=== PATIENT | male | born 1960 | race American Indian/Alaskan Native ===

== ENCOUNTER 2016-11-05 07:38 | Emergency (ER) | payer MEDICARE ==
[2016-11-05 08:30] LABS: Anion Gap 21 mmol/L; BUN/Creatinine Ratio 19.16; Blood Urea Nitrogen 23 mg/dL (9-20); Calcium 8.7 mg/dL (8.4-10.2); Carbon Dioxide 23 mmol/L (22-30); Chloride 87.2 mmol/L (98-107); Glucose 123 mg/dL (75-100); Potassium 3.5 mmol/L (3.6-5.0); Sodium 128 mmol/L (137-145)
[2016-11-05 08:49] LABS: Bacteria,Urine 1+ /HPF (Negative); Bilirubin,Urine NEG (Negative); Blood,Urine NEG (Negative); Ketones,Urine NEG (Negative); Leukocyte Esterase,Urine NEG (Negative); Mucus,Urine FEW /HPF; Nitrite,Urine NEG (Negative); Protein,Urine <15 mg/dL mg/dL (Negative)
[2016-11-05] MEDS ORDERED: NACL 0.9% 1000 ML 1,000 ML ONE (12:24)
[2016-11-05] MEDS: NACL 0.9% 1000 ML 1,000 ML IV ONE (12:52)
--- NOTE | 2016-11-05 15:06 | Emergency Department Report ---
HPI - General Chief Complaint: Extremity Injury, Upper Time Seen by Provider: 11/05/16 12:05 - HPI HPI: The patient is a 56-year-old male who presents for evaluation of diffuse myalgias to the bilateral ribs, arms, legs, feet, and hands. He states that his pain has been present for the past one day, and has been 10/10 in severity, cramping in quality, exacerbated with movement of the limbs or thoracic cage, and associated with on and off jitteriness in the bilateral hands. The patient denies fever, headache, trauma to the head, neck pain or stiffness, chest pain, dyspnea, abdominal pain, diarrhea, dysuria, flank pain, arthralgias or rash. ED Past Medical Hx - Past Medical History Hx Hypertension: Yes Hx Congestive Heart Failure: No Hx Diabetes: No Hx Asthma: No Hx COPD: No Hx HIV: No - Surgical History Past Surgical History?: No Hx Pacemaker: No Hx Internal Defibrillator: No - Social History Smoking Status: Never Smoker Substance Use Type: Alcohol - Medications Home Medications: Home Medications Medication Instructions Recorded Confirmed Last Taken Type Diazepam Tab [Valium] 5 mg PO TID PRN #10 tablet 11/05/16 Unknown Rx Ibuprofen [Motrin] 800 mg PO Q8HR PRN #15 tablet 11/05/16 Unknown Rx Lisinopril [Zestril] 20 mg PO QDAY 11/05/16 11/05/16 11/05/16 06:00 History Triamter/Hctz 75-50 mg [Maxzide 1 tab PO QDAY 11/05/16 11/05/16 11/04/16 09:00 History 75-50 mg] ED Review of Systems ROS: Stated complaint: PAIN IN HANDS/CRAMPING Other details as noted in HPI Constitutional: denies: fever ENT: denies: throat or neck pain Respiratory: denies: cough, shortness of breath Cardiovascular: denies: chest pain Endocrine: denies unexplained weight loss or gain Gastrointestinal: denies: abdominal pain, nausea Genitourinary: denies: dysuria Musculoskeletal: reports diffuse myalgias denies: leg swelling Skin: denies: rash Neurological: denies: headache Hematological/Lymphatic: denies: easy bleeding or easy bruising Psych: denies sadness or hopelessness Physical Exam - Physical Exam Vital Signs: Vital Signs 11/05/16 11/05/16 07:56 12:40 Temperature 98.3 F Pulse Rate 77 Respiratory 18 18 Rate Blood Pressure 129/80 O2 Sat by Pulse 99 100 Oximetry Physical Exam: General: well-nourished, well-developed, no acute distress Head: Normocephalic, atraumatic Eyes: normal sclera, EOMI, PERRL ENT: Mucous membranes are pale and dry Neck: No neck stiffness, no cervical adenopathy Respiratory: Breath sounds equal bilaterally, no wheezing, rales, or rhonchi Cardio: S1 and S2 present, no murmurs, rubs, gallops, capillary refill is delayed Abdomen: Normoactive bowel sounds, soft abdomen, no tenderness Musc: Diffuse generalized tenderness to palpation to the bilateral lower intercostals, and proximal and distal bilateral arms and legs, No edema of arms or legs Skin: No rash Neuro: Alert oriented 3, no facial drooping, normal speech, no sensation motor deficit in the arms or legs, no resting or intention tremor, reflexes 2+ and symmetric on DTR testing, no coordination deficit with finger to nose testing bilaterally, no deficit with ambulation Psych: Normal affect ED Course Vital Signs 11/05/16 11/05/16 07:56 12:40 Temperature 98.3 F Pulse Rate 77 Respiratory 18 18 Rate Blood Pressure 129/80 O2 Sat by Pulse 99 100 Oximetry ED Medical Decision Making - Lab Data Result diagrams: 11/05/16 15:17 11/05/16 08:03 - Medical Decision Making The patient was seen and examined by myself. The patient is placed on a awake overnight monitor and continuous pulse ox. On initial evaluation, the patient was found to be in no distress. Evaluation orders are placed. IV access is established and the patient is given 1 L normal saline fluid bolus for treatment of dehydration, and an IV Toradol and Valium for his pain. Lab results revealed mild hypokalemia, potassium 3.5, and otherwise were non- concerning including nml WBC, hemoglobin, hematocrit, renal function, and CK level. The patient is given a tablet of [place] for treatment of hyperkalemia. The patient was reevaluated and reported that their symptoms were markedly improved. The patient is stable for discharge with outpatient follow-up. The patient is given follow-up and return instructions. The patient expressed understanding and agreed with the plan. The patient is discharged in stable condition. Critical care attestation.: If time is entered above; I have spent that time in minutes in the direct care of this critically ill patient, excluding procedure time. ED Disposition Clinical Impression: Intercostal myalgia, Muscle cramps, Hypokalemia, Dehydration Disposition: DISCHARGED TO HOME OR SELFCARE Is pt being admited?: No Does the pt Need Aspirin: No Condition: Stable Instructions: Hypokalemia (ED), Musculoskeletal Pain (ED), Muscle Cramp (ED) Prescriptions: Diazepam Tab [Valium] 5 mg PO TID PRN #10 tablet PRN Reason: Anxiety Ibuprofen [Motrin] 800 mg PO Q8HR PRN #15 tablet PRN Reason: Pain Referrals: PRIMARY CARE,MD [Primary Care Provider] - 3-5 Days Time of Disposition: 15:06
[2016-11-05 15:29] LABS: Basophils % (Auto) 1.1 % (0.0-1.8); Hematocrit 36.3 % (35.5-45.6); Hemoglobin 12.1 gm/dl (11.8-15.2); Mean Corpuscular HGB Conc 33 % (32-34); Mean Corpuscular Hemoglobin 32 pg (28-32); Mean Corpuscular Volume 96 fl (84-94); Platelet Count 138 K/mm3 (140-440); Red Blood Count 3.77 M/mm3 (3.65-5.03); Red Cell Distribution Width 17.7 % (13.2-15.2); White Blood Count 6.7 K/mm3 (4.5-11.0)
[2016-11-05] MEDS: NACL 0.9% 500 ML 500 ML IV ONE (15:31)
[2016-11-05] MEDS: K-DUR PO ONE (15:40)
[2016-11-05] MEDS: TORADOL IV ONE (15:45)
[2016-11-05] MEDS: VALIUM IV ONE (15:46)
[2016-11-05 15:52] LABS: Magnesium 1.8 mg/dL (1.7-2.3)
[2016-11-05 16:30] VITALS: BP 95/63
== END 2016-11-05 16:25 | disposition home or self-care (01) ==
LOC: ED 07:38
DX: M79.1 Myalgia (principal); E87.6 Hypokalemia; E86.0 Dehydration; I10 Essential (primary) hypertension
CPT/HCPCS: 36415; 80048; 80320; 81001; 82550; 83735; 85025; 96361; 96374; 96375; 99284; G0480; J1885; J3360; J7030

== ENCOUNTER 2018-07-17 00:56 | Emergency (ER) | payer MEDICARE, OTHER ==
[2018-07-17 01:24] VITALS: BP 116/72
[2018-07-17] MEDS ORDERED: TORADOL IM ONE (02:18)
--- NOTE | 2018-07-17 02:36 | Emergency Department Report ---
ED Back Pain/Injury HPI - General Chief Complaint: Back Pain/Injury Stated Complaint: RASH Time Seen by Provider: 07/17/18 01:45 Source: patient Limitations: No Limitations - History of Present Illness Initial Comments: Patient is a 58-year-old male with hx of HTN, who presents for low back pain radiating to her right lateral thigh today denies fall injury or trauma pain is described as for routine aching burning pain is exacerbated by bending twisting prolonged sitting or standing there is no numbness no tingling or paralysis no degrees or loss of bowel or bladder function. Patient has had chronic back pain in the past in same location and intensity, described as 10/23 backache MD Complaint: back injury -: Sudden Similar Symptoms Previously: Yes Place: home Radiation: right leg Severity: moderate Severity scale (0 -10): 4 Quality: sharp, aching Consistency: intermittent Improves With: other (rest ) Worsens With: movement (bending twisting prolonged sitting or standing ) Context: turning/twisting, bending Associated Symptoms: denies: confusion, weakness, chest pain, numbness, difficulty walking, cough, difficulty urinating, diaphoresis, incontinence, fever/chills, constipation, headaches, abdominal pain, loss of appetite, malaise, nausea/vomiting, rash, seizure, shortness of breath, syncope - Related Data Home Medications Medication Instructions Recorded Confirmed Last Taken Lisinopril [Zestril] 20 mg PO QDAY 11/05/16 11/05/16 11/05/16 06:00 Triamter/Hctz 75-50 mg (Nf) 1 tab PO QDAY 11/05/16 11/05/16 11/04/16 09:00 [Maxzide 75-50 mg] Previous Rx's Medication Instructions Recorded Last Taken Type diazePAM TAB [Valium] 5 mg PO TID PRN #10 tablet 11/05/16 Unknown Rx Cyclobenzaprine [Flexeril] 10 mg PO BID PRN #20 tablet 07/17/18 Unknown Rx Menthol/Camphor [[place] 1 applicatio TP QID PRN #1 tube 07/17/18 Unknown Rx Ointment] Naproxen 500 mg PO BID PRN #30 tablet 07/17/18 Unknown Rx Allergies Allergy/AdvReac Type Severity Reaction Status Date / Time No Known Allergies Allergy Verified 11/05/16 07:55 ED Review of Systems ROS: Stated complaint: RASH Other details as noted in HPI Constitutional: denies: chills, fever Eyes: denies: eye pain, eye discharge, vision change ENT: denies: ear pain, throat pain Respiratory: denies: cough, shortness of breath, wheezing Cardiovascular: denies: chest pain, palpitations Endocrine: no symptoms reported Gastrointestinal: denies: abdominal pain, nausea, vomiting, diarrhea, constipation Genitourinary: denies: urgency, dysuria, frequency, hematuria, discharge Musculoskeletal: back pain. denies: joint swelling, arthralgia, myalgia Skin: denies: rash, lesions Neurological: denies: headache, weakness, numbness, paresthesias, confusion, abnormal gait, vertigo Psychiatric: denies: anxiety, depression Hematological/Lymphatic: as per HPI ED Past Medical Hx - Past Medical History Previous Medical History?: Yes Hx Hypertension: Yes Hx Congestive Heart Failure: No Hx Diabetes: No Hx Asthma: No Hx COPD: No Hx HIV: No Additional medical history: concussion - Surgical History Past Surgical History?: No Hx Pacemaker: No Hx Internal Defibrillator: No - Social History Smoking Status: Light Tobacco Smoker Substance Use Type: Alcohol - Medications Home Medications: Home Medications Medication Instructions Recorded Confirmed Last Taken Type Lisinopril [Zestril] 20 mg PO QDAY 11/05/16 11/05/16 11/05/16 06:00 History Triamter/Hctz 75-50 mg (Nf) 1 tab PO QDAY 11/05/16 11/05/16 11/04/16 09:00 History [Maxzide 75-50 mg] diazePAM TAB [Valium] 5 mg PO TID PRN #10 tablet 11/05/16 Unknown Rx Cyclobenzaprine [Flexeril] 10 mg PO BID PRN #20 tablet 07/17/18 Unknown Rx Menthol/Camphor [[place] 1 applicatio TP QID PRN #1 tube 07/17/18 Unknown Rx Ointment] Naproxen 500 mg PO BID PRN #30 tablet 07/17/18 Unknown Rx ED Physical Exam - General Limitations: No Limitations General appearance: alert, in no apparent distress - Head Head exam: Present: atraumatic, normocephalic - Eye Eye exam: Present: normal appearance, PERRL, EOMI Pupils: Present: normal accommodation - ENT ENT exam: Present: mucous membranes moist, TM's normal bilaterally - Neck Neck exam: Present: normal inspection - Respiratory Respiratory exam: Present: normal lung sounds bilaterally, chest wall tenderness. Absent: respiratory distress, wheezes, rhonchi, stridor - Cardiovascular Cardiovascular Exam: Present: regular rate, normal rhythm, bradycardia, tachycardia. Absent: systolic murmur, diastolic murmur, rubs, gallop - GI/Abdominal GI/Abdominal exam: Present: soft, normal bowel sounds. Absent: tenderness, guarding, rebound, rigid, organomegaly, mass, bruit, pulsatile mass, hernia - Rectal Rectal exam: Present: deferred - exam: Present: other (exam deferred ) - Extremities Exam Extremities exam: Present: normal inspection, normal capillary refill. Absent: tenderness, pedal edema, joint swelling, calf tenderness - Back Exam Back exam: Present: full ROM, tenderness, muscle spasm, paraspinal tenderness. Absent: CVA tenderness (R), CVA tenderness (L), vertebral tenderness, rash noted - Neurological Exam Neurological exam: Present: alert, oriented X3, CN II-XII intact, normal gait, reflexes normal - Psychiatric Psychiatric exam: Present: normal affect, normal mood - Skin Skin exam: Present: warm, dry, intact, normal color. Absent: rash ED Course Vital Signs 07/17/18 01:15 Temperature 97.5 F L Pulse Rate 94 H Respiratory 18 Rate Blood Pressure 116/72 O2 Sat by Pulse 96 Oximetry ED Medical Decision Making - Medical Decision Making This is a low back strain with right sided sciatica pain is improved with pain medds given ED, there is no dysuria frequency or urgency no hematuria no fever or chills, and no n/v no posterior vertebral point tenderness. plan: NSAIDS , muscle relaxant, analgesic balm, pt will follow up with pcp in 2-3 days or return to ed symptoms worsen. Critical care attestation.: If time is entered above; I have spent that time in minutes in the direct care of this critically ill patient, excluding procedure time. ED Disposition Clinical Impression: Lumbar strain Qualifiers: Encounter type: initial encounter Qualified Code(s): S39.012A - Strain of muscle, fascia and tendon of lower back, initial encounter Disposition: TO HOME OR SELFCARE Is pt being admited?: No Does the pt Need Aspirin: No Condition: Stable Instructions: Muscle Strain (ED), Low Back Strain (ED), Core Strengthening Exercises (GEN) Prescriptions: Cyclobenzaprine [Flexeril] 10 mg PO BID PRN #20 tablet PRN Reason: Muscle Spasm Menthol/Camphor [[place] Ointment] 1 applicatio TP QID PRN #1 tube PRN Reason: pain Naproxen 500 mg PO BID PRN #30 tablet PRN Reason: pain Referrals: PRIMARY CARE, [Primary Care Provider] - 3-5 Days Forms: Work/School Release Form(ED) Time of Disposition: 02:56
== END 2018-07-17 03:08 | disposition home or self-care (01) ==
LOC: EDBD → ED 00:56
DX: S39.012A Strain of muscle, fascia and tendon of lower back, initial encounter (principal); X58.XXXA Exposure to other specified factors, initial encounter; Y93.89 Activity, other specified; Y92.89 Other specified places as the place of occurrence of the external cause; Y99.8 Other external cause status; I10 Essential (primary) hypertension; F17.200 Nicotine dependence, unspecified, uncomplicated
CPT/HCPCS: 96372; 99282; J1885

== ENCOUNTER 2018-07-23 07:49 | Inpatient (IN) | payer MEDICARE ==
--- NOTE | 2018-07-23 08:37 | Emergency Department Report ---
ED General Adult HPI - General Chief complaint: Extremity Problem,Nontraumatic Stated complaint: SWELLING LEG AND FOOT/PAIN Source: patient Mode of arrival: Ambulatory Limitations: No Limitations - History of Present Illness Initial comments: Patient presents to emergency department with chief complaint of bilateral leg swelling for the last week. Patient denies any pain in his legs. Patient also denies shortness of breath, chest pain, headache. -: Gradual Severity scale (0 -10): 0 Consistency: constant Improves with: none Worsens with: none Associated Symptoms: denies other symptoms Treatments Prior to Arrival: none - Related Data Home Medications Medication Instructions Recorded Confirmed Last Taken Lisinopril [Zestril] 20 mg PO QDAY 11/05/16 11/05/16 11/05/16 06:00 Triamter/Hctz 75-50 mg (Nf) 1 tab PO QDAY 11/05/16 11/05/16 11/04/16 09:00 [Maxzide 75-50 mg] Previous Rx's Medication Instructions Recorded Last Taken Type diazePAM TAB [Valium] 5 mg PO TID PRN #10 tablet 11/05/16 Unknown Rx Cyclobenzaprine [Flexeril] 10 mg PO BID PRN #20 tablet 07/17/18 Unknown Rx Menthol/Camphor [[place] 1 applicatio TP QID PRN #1 tube 07/17/18 Unknown Rx Ointment] Naproxen 500 mg PO BID PRN #30 tablet 07/17/18 Unknown Rx Allergies Allergy/AdvReac Type Severity Reaction Status Date / Time No Known Allergies Allergy Verified 11/05/16 07:55 ED Review of Systems ROS: Stated complaint: SWELLING LEG AND FOOT/PAIN Other details as noted in HPI Comment: All other systems reviewed and negative Constitutional: denies: chills, fever Eyes: denies: eye pain, eye discharge, vision change ENT: denies: ear pain, throat pain Respiratory: denies: cough, shortness of breath, wheezing Cardiovascular: denies: chest pain, palpitations Endocrine: no symptoms reported Gastrointestinal: denies: abdominal pain, nausea, diarrhea Genitourinary: denies: urgency, dysuria Musculoskeletal: denies: back pain, joint swelling, arthralgia Skin: denies: rash, lesions Neurological: denies: headache, weakness, paresthesias Psychiatric: denies: anxiety, depression Hematological/Lymphatic: denies: easy bleeding, easy bruising ED Past Medical Hx - Past Medical History Hx Hypertension: Yes Hx Congestive Heart Failure: No Hx Diabetes: No Hx Asthma: No Hx COPD: No Hx HIV: No Additional medical history: concussion - Surgical History Past Surgical History?: No Hx Pacemaker: No Hx Internal Defibrillator: No - Social History Smoking Status: Never Smoker - Medications Home Medications: Home Medications Medication Instructions Recorded Confirmed Last Taken Type Lisinopril [Zestril] 20 mg PO QDAY 11/05/16 11/05/16 11/05/16 06:00 History Triamter/Hctz 75-50 mg (Nf) 1 tab PO QDAY 11/05/16 11/05/16 11/04/16 09:00 History [Maxzide 75-50 mg] diazePAM TAB [Valium] 5 mg PO TID PRN #10 tablet 11/05/16 Unknown Rx Cyclobenzaprine [Flexeril] 10 mg PO BID PRN #20 tablet 07/17/18 Unknown Rx Menthol/Camphor [[place] 1 applicatio TP QID PRN #1 tube 07/17/18 Unknown Rx Ointment] Naproxen 500 mg PO BID PRN #30 tablet 07/17/18 Unknown Rx ED Physical Exam - General Limitations: No Limitations General appearance: alert - Head Head exam: Present: atraumatic, normocephalic - Eye Eye exam: Present: PERRL, EOMI, other (jaundice of sclera) - ENT ENT exam: Present: mucous membranes moist - Neck Neck exam: Present: normal inspection - Respiratory Respiratory exam: Present: normal lung sounds bilaterally. Absent: respiratory distress, wheezes, rales, rhonchi - Cardiovascular Cardiovascular Exam: Present: regular rate, normal rhythm. Absent: systolic m urmur, diastolic murmur, rubs, gallop - GI/Abdominal GI/Abdominal exam: Present: soft, distended, normal bowel sounds. Absent: tenderness - Rectal Rectal exam: Present: deferred - Extremities Exam Extremities exam: Present: other (bilateral pitting edema) - Back Exam Back exam: Present: normal inspection - Neurological Exam Neurological exam: Present: alert, oriented X3, CN II-XII intact. Absent: motor sensory deficit - Psychiatric Psychiatric exam: Present: normal affect, normal mood - Skin Skin exam: Present: warm, dry, intact, normal color. Absent: rash ED Course Vital Signs 07/23/18 07:57 Temperature 98.5 F Pulse Rate 85 Respiratory 20 Rate Blood Pressure 132/81 O2 Sat by Pulse 99 Oximetry ED Medical Decision Making - Lab Data Result diagrams: 07/23/18 08:45 07/23/18 08:45 Lab Results 07/23/18 07/23/18 07/23/18 Range/Units 08:45 08:45 Unknown WBC 7.7 (4.5-11.0) K/mm3 RBC 3.08 L (3.65-5.03) M/mm3 Hgb 11.0 L (11.8-15.2) gm/dl Hct 30.6 L (35.5-45.6) % MCV 99 H (84-94) fl MCH 36 H (28-32) pg MCHC 36 H (32-34) % RDW 16.7 H (13.2-15.2) % Plt Count 103 L (140-440) K/mm3 Sodium 130 L (137-145) mmol/L Potassium 2.8 L* (3.6-5.0) mmol/L Chloride 92.1 L (98-107) mmol/L Carbon Dioxide 26 (22-30) mmol/L Anion Gap 15 mmol/L BUN 9 (9-20) mg/dL Creatinine < 0.2 L (0.8-1.5) mg/dL Estimated GFR > 60 ml/min BUN/Creatinine Ratio 45 % Glucose 90 (75-100) mg/dL Calcium 7.3 L (8.4-10.2) mg/dL Total Bilirubin 17.50 H (0.1-1.2) mg/dL AST 141 H (5-40) units/L ALT 45 (7-56) units/L Alkaline Phosphatase 197 H (35-129) units/L NT-Pro-B Natriuret Pep 69.91 (0-900) pg/mL Total Protein 6.6 (6.3-8.2) g/dL Albumin 2.4 L (3.9-5) g/dL Albumin/Globulin Ratio 0.6 % Urine Color Yellow (Yellow) Urine Turbidity Clear (Clear) Urine pH 5.0 (5.0-7.0) Ur Specific [place] 1.010 (1.003-1.030) Urine Protein <15 mg/dl (Negative) mg/dL Urine Glucose (UA) Neg (Negative) mg/dL Urine Ketones Neg (Negative) mg/dL Urine Blood Neg (Negative) Urine Nitrite Neg (Negative) Urine Bilirubin Mod (Negative) Urine Ictotest Positive (Negative) Urine Urobilinogen 4.0 (<2.0) mg/dL Ur Leukocyte Esterase Neg (Negative) Urine WBC (Auto) 4.0 (0.0-6.0) /HPF Urine RBC (Auto) < 1.0 (0.0-6.0) /HPF U Epithel Cells (Auto) 1.0 (0-13.0) /HPF Urine Bacteria (Auto) 1+ (Negative) /HPF Urine Mucus Few /HPF Critical care attestation.: If time is entered above; I have spent that time in minutes in the direct care of this critically ill patient, excluding procedure time. ED Disposition Clinical Impression: Total bilirubin, elevated, Peripheral edema Disposition: 09 OP ADMIT IP TO THIS HOSP Is pt being admited?: Yes Does the pt Need Aspirin: No Condition: Fair Referrals: PRIMARY CARE, [Primary Care Provider] - 3-5 Days
--- NOTE | 2018-07-23 08:54 | XRay Report ---
ROUTINE CHEST, TWO VIEWS: HISTORY: Shortness of breath. Compared to 08/31/14. The trachea, heart, mediastinal contour, lung negrete and bony thorax are unremarkable. IMPRESSION: Unremarkable chest x-ray.
[2018-07-23 09:12] LABS: Hematocrit 30.6 % (35.5-45.6); Mean Corpuscular HGB Conc 36 % (32-34); Mean Corpuscular Volume 99 fl (84-94); Platelet Count 103 K/mm3 (140-440); Red Blood Count 3.08 M/mm3 (3.65-5.03); Red Cell Distribution Width 16.7 % (13.2-15.2)
[2018-07-23 09:27] LABS: Alanine Aminotransferase 45 units/L (7-56); Albumin 2.4 g/dL (3.9-5); BUN/Creatinine Ratio 45; Blood Urea Nitrogen 9 mg/dL (9-20); Calcium 7.3 mg/dL (8.4-10.2); Hemolysis Index 0
[2018-07-23 11:23] LABS: Bacteria,Urine 1+ /HPF (Negative); Bilirubin,Urine MOD (Negative); Blood,Urine NEG (Negative); Mucus,Urine FEW /HPF; Protein,Urine <15 mg/dL mg/dL (Negative)
[2018-07-23 11:26] LABS: Color,Urine Yellow (Yellow)
[2018-07-23 11:27] LABS: RBC,Urine < 1.0 /HPF (0.0-6.0)
[2018-07-23 11:29] LABS: Ictotest,Urine Positive (Negative)
--- NOTE | 2018-07-23 11:32 | Cat Scan Report ---
CT ABDOMEN PELVIS WITHOUT CONTRAST: HISTORY: Ascites. COMPARISON: 08/31/14. TECHNIQUE: Helical CT in 1.25mm intervals without IV contrast. Sagittal and coronal reconstructions. FINDINGS: Lung bases: Normal. Liver: Mild diffuse fatty infiltration is suspected throughout the liver. No obvious liver mass. Mild hypertrophy of the left hepatic lobe and very subtle surface nodularity of the liver are identified which could represent early cirrhotic changes. Biliary system: Normal. Pancreas: Normal. Spleen: Normal. 11.9 cm in length. Kidneys/ureters/bladder: Normal. Adrenal glands: Normal. Aorta: Normal. Intestines: Mild diverticulosis of the descending colon is identified. No evidence for focal inflammation or bowel obstruction. Appendix: Not confidently identified, correlate with surgical history. Pelvic viscera: Normal. Ascites: None. Adenopathy: None. Musculoskeletal: Intact. Mild lumbar spondylosis is noted. IMPRESSION: No ascites. No acute abdominal process is identified. Fatty infiltration of the liver. Question early cirrhotic changes. Mild diverticulosis of the distal colon.
[2018-07-23] MEDS ORDERED: KCL 20MEQ/100ML 20 MEQ/100 ML BAG IV ONE (13:10)
--- NOTE | 2018-07-23 13:42 | History and Physical Report ---
History of Present Illness Chief complaint: I need to get checked out History of present illness: 58 YO Male with ETOH Dependence, HTN presents to ED for evaluation. Pt states that he has experienced shortness of breath, generalized edema, and chest discomfort over the past 1 week, with worsening symptoms over the same time frame. Pt denies fever, chills, CP, Palpitations, NVD, Trauma, skin rash or recent ill contacts. Pt acknowledges darkening skin over the past week. Pt transported to [facility] for further care and evaluation. Pt seen and evaluated in ED and found to have Obstructive Jaundice, and suspected Cirrhosis. Pt admitted to medical floor. GI consulted in ED. Past History Past Medical History: hypertension Past Surgical History: No surgical history Social history: smoking Family history: no significant family history (reviewed) Medications and Allergies Allergies Allergy/AdvReac Type Severity Reaction Status Date / Time No Known Allergies Allergy Verified 11/05/16 07:55 Home Medications Medication Instructions Recorded Confirmed Last Taken Type Cyclobenzaprine [Flexeril] 10 mg PO BID PRN #20 tablet 07/17/18 07/23/18 07/23/18 Rx Naproxen 500 mg PO BID PRN #30 tablet 07/17/18 07/23/18 07/23/18 Rx Active Meds: Active Medications Potassium Chloride (Kcl 10meq/100ml) 10 meq in 100 mls @ 100 mls/hr IV Q1H NITA Stop: 07/23/18 15:59 Review of Systems Constitutional: no weight loss, no weight gain, no fever, no chills Ears, nose, mouth and throat: no ear pain, no ear discharge, no tinnitis, no decreased hearing, no nasal congestion, no nasal discharge Cardiovascular: shortness of breath, no chest pain, no orthopnea, no palpitations, no dyspnea on exertion Respiratory: no cough, no cough with sputum, no excessive sputum, no hemoptysis Gastrointestinal: no abdominal pain, no nausea, no vomiting, no diarrhea, no con stipation Genitourinary Male: no hematuria, no flank pain, no discharge, no urinary frequency, no urinary hesitancy Rectal: no pain, no incontinence, no bleeding Musculoskeletal: no neck stiffness, no neck pain, no shooting arm pain, no arm numbness/tingling, no low back pain Integumentary: no rash, no pruritis, no redness, no sores, no wounds Neurological: no head injury, no transient paralysis, no paralysis, no weakness, no parathesias, no numbness Psychiatric: no anxiety, no memory loss, no change in sleep habits, no sleep disturbances, no insomnia, no hypersomnia Endocrine: no cold intolerance, no heat intolerance, no polyphagia, no excessive thirst, no polydipsia, no polyuria Hematologic/Lymphatic: no easy bruising, no easy bleeding, no lymphadenopathy, no lymphedema Allergic/Immunologic: no urticaria, no allergic rhinitis, no wheezing, no persistent infections, no anaphylaxis, no angioedema Exam - Constitutional Vitals: Temp Pulse Resp BP Pulse Ox 98.5 F 85 20 132/81 99 07/23/18 07:57 07/23/18 07:57 07/23/18 07:57 07/23/18 07:57 07/23/18 07:57 General appearance: Present: mild distress - EENT Eyes: Present: PERRL ENT: hearing intact, clear oral mucosa - Neck Neck: Present: supple, normal ROM - Respiratory Respiratory effort: normal Respiratory: bilateral: CTA - Cardiovascular Heart Sounds: Present: S1 & S2. Absent: rub, click - Extremities Extremities: pulses symmetrical, No edema Peripheral Pulses: within normal limits - Abdominal General gastrointestinal: Present: soft, non-tender, non-distended, normal bowel sounds Male genitourinary: Present: normal - Integumentary Integumentary: Present: clear, warm, dry - Musculoskeletal Musculoskeletal: gait normal, strength equal bilaterally - Psychiatric Psychiatric: appropriate mood/affect, intact judgment & insight - Neurologic Neurologic: CNII-XII intact, moves all extremities Results - Labs CBC & Chem 7: 07/23/18 08:45 07/23/18 08:45 Labs: Abnormal lab results 07/23/18 07/23/18 Range/Units 08:45 08:45 RBC 3.08 L (3.65-5.03) M/mm3 Hgb 11.0 L (11.8-15.2) gm/dl Hct 30.6 L (35.5-45.6) % MCV 99 H (84-94) fl MCH 36 H (28-32) pg MCHC 36 H (32-34) % RDW 16.7 H (13.2-15.2) % Plt Count 103 L (140-440) K/mm3 Sodium 130 L (137-145) mmol/L Potassium 2.8 L* (3.6-5.0) mmol/L Chloride 92.1 L (98-107) mmol/L Creatinine < 0.2 L (0.8-1.5) mg/dL Calcium 7.3 L (8.4-10.2) mg/dL Total Bilirubin 17.50 H (0.1-1.2) mg/dL AST 141 H (5-40) units/L Alkaline Phosphatase 197 H (35-129) units/L Albumin 2.4 L (3.9-5) g/dL Assessment and Plan - Patient Problems (1) Obstructive jaundice Current Visit: Yes Status: Acute Plan to address problem: CT ABdomen pelvis, Fractionated bilirubin, CMP, GI consulted in ED, BAL (2) Total bilirubin, elevated Current Visit: Yes Status: Acute Plan to address problem: fractionated bilirubin, supportive care. (3) DVT prophylaxis Current Visit: Yes Status: Acute Plan to address problem: SCD to BLE while in bed.
[2018-07-23] MEDS: KCL 10MEQ/100ML 10 MEQ/100 ML BAG IV SCH ×2 (13:55→15:03)
[2018-07-23] MEDS ORDERED: TYLENOL PO PRN ×2 (14:42→18:43)
[2018-07-23] MEDS ORDERED: PROVENTIL IH PRN (14:42)
[2018-07-23] MEDS ORDERED: ZOFRAN IV PRN (14:42)
[2018-07-23] MEDS ORDERED: FLEXERIL PO PRN (14:43)
[2018-07-23] MEDS ORDERED: NAPROSYN PO PRN (14:43)
[2018-07-23 16:30] LABS: Bilirubin,Direct 0.2 mg/dL (0-0.2)
[2018-07-23] MEDS: FOLVITE PO SCH (17:51)
[2018-07-23] MEDS: VITAMIN B-1 PO SCH (17:51)
[2018-07-23] MEDS: THERAGRAN Tab PO SCH (17:51)
[2018-07-23] MEDS ORDERED: ATIVAN IV PRN ×2 (18:45)
--- NOTE | 2018-07-23 18:48 | Gastroenterology Consultation ---
History of Present Illness - Reason for Consult Consult date: 07/23/18 Jaundice Requesting physician: NIKI PALAFOX - History of Present Illness The patient is a 58 yo male admitted with new onset jaundice. He came to the ER for new onset peripheral edema for the last week. He was noted to be jaundiced on labs. He has no hx of liver disease (but obvious cirrhosis on CT, labs and physical exam). He denies a hx of hepatitis, but does not have a regular PCP. He does drink regular, and heavy, EtOH. His last drink was the day prior to admit. He has no CP or SOB, but admits to fatigue. He has no acholic stools, and a CT scan showed a normal-sized CBD (non-contrast). He is not on any new medications, and denies drug use or OTC use. There is no family hx of liver disease by his report. He has no hx of DTs. Past History Past Medical History: hypertension Past Surgical History: No surgical history Social history: smoking, alcohol abuse Family history: no significant family history (reviewed) Medications and Allergies Allergies Allergy/AdvReac Type Severity Reaction Status Date / Time No Known Allergies Allergy Verified 11/05/16 07:55 Home Medications Medication Instructions Recorded Confirmed Last Taken Type Cyclobenzaprine [Flexeril] 10 mg PO BID PRN #20 tablet 07/17/18 07/23/18 07/23/18 Rx Naproxen 500 mg PO BID PRN #30 tablet 07/17/18 07/23/18 07/23/18 Rx Active Meds: Active Medications Acetaminophen (Tylenol) 650 mg PO Q6H PRN PRN Reason: Pain MILD(1-3)/Fever >100.5/STEWART Albuterol (Proventil) 2.5 mg IH Q4HRT PRN PRN Reason: Shortness Of Breath Cyclobenzaprine HCl (Flexeril) 10 mg PO BID PRN PRN Reason: Muscle Spasm Folic Acid (Folvite) 1 mg PO QDAY NITA Last Admin: 07/23/18 17:51 Dose: 1 mg Documented by: Lorazepam (Ativan) 2 mg IV Q1H PRN PRN Reason: CIWA-Ar 8-15 Lorazepam (Ativan) 4 mg IV Q1H PRN PRN Reason: CIWA-Ar 16-25 Multivitamins (Theragran Tab) 1 each PO QDAY [facility] Last Admin: 07/23/18 17:51 Dose: 1 each Documented by: Ondansetron HCl (Zofran) 4 mg IV Q8H PRN PRN Reason: Nausea And Vomiting Pneumococcal Polyvalent Vaccine (Pneumovax 23) 0.5 ml IM .ONCE ONE Stop: 07/24/18 12:01 Sodium Chloride (Sodium Chloride Flush Syringe 10 Ml) 10 ml IV BID [facility] Sodium Chloride (Sodium Chloride Flush Syringe 10 Ml) 10 ml IV PRN PRN PRN Reason: LINE FLUSH Thiamine HCl (Vitamin B-1) 100 mg PO QDAY [facility] Last Admin: 07/23/18 17:51 Dose: 100 mg Documented by: I HAVE REVIEWED AND RECONCILED MEDICATIONS Review of Systems - Review of Systems All systems: negative (as noted in the HPI) Exam - Constitutional Vital Signs: Temp Pulse Resp BP Pulse Ox 98.0 F 80 18 123/74 100 07/23/18 16:57 07/23/18 16:57 07/23/18 16:57 07/23/18 16:57 07/23/18 16:57 General appearance: no acute distress, temporal muscle wasting (mild) - EENT Eyes: PERRL, EOM intact, scleral icterus ENT: hearing intact, clear oral mucosa, poor dentition, no thrush - Neck Neck: supple, normal ROM - Respiratory Respiratory effort: normal Respiratory: bilateral: CTA - Cardiovascular Rhythm: regular Heart Sounds: Present: S1 & S2 Extremity abnormal: edema (2+ bilateral lower extremity edema) - Gastrointestinal General gastrointestinal: Present: soft, non-tender, non-distended - Integumentary Integumentary: Present: clear, warm, dry (spider angiomas present) - Neurologic Neurological: alert and oriented x3, other (mild tremor, no asterixis) - Labs CBC & Chem 7: 07/23/18 08:45 07/23/18 08:45 Lab Results: Laboratory Results - last 24 hr 07/23/18 07/23/18 07/23/18 08:45 08:45 08:45 WBC 7.7 RBC 3.08 L Hgb 11.0 L Hct 30.6 L MCV 99 H MCH 36 H MCHC 36 H RDW 16.7 H Plt Count 103 L Sodium 130 L Potassium 2.8 L* Chloride 92.1 L Carbon Dioxide 26 Anion Gap 15 BUN 9 Creatinine < 0.2 L Estimated GFR > 60 BUN/Creatinine Ratio 45 Glucose 90 Calcium 7.3 L Total Bilirubin 17.50 H 17.10 H Direct Bilirubin 0.2 Indirect Bilirubin 16.9 AST 141 H ALT 45 Alkaline Phosphatase 197 H NT-Pro-B Natriuret Pep 69.91 Total Protein 6.6 Albumin 2.4 L Albumin/Globulin Ratio 0.6 Urine Color Urine Turbidity Urine pH Ur Specific [place] Urine Protein Urine Glucose (UA) Urine Ketones Urine Blood Urine Nitrite Urine Bilirubin Urine Ictotest Urine Urobilinogen Ur Leukocyte Esterase Urine WBC (Auto) Urine RBC (Auto) U Epithel Cells (Auto) Urine Bacteria (Auto) Urine Mucus Plasma/Serum Alcohol 07/23/18 07/23/18 14:55 Unknown WBC RBC Hgb Hct MCV MCH MCHC RDW Plt Count Sodium Potassium Chloride Carbon Dioxide Anion Gap BUN Creatinine Estimated GFR BUN/Creatinine Ratio Glucose Calcium Total Bilirubin Direct Bilirubin Indirect Bilirubin AST ALT Alkaline Phosphatase NT-Pro-B Natriuret Pep Total Protein Albumin Albumin/Globulin Ratio Urine Color Yellow Urine Turbidity Clear Urine pH 5.0 Ur Specific [place] 1.010 Urine Protein <15 mg/dl Urine Glucose (UA) Neg Urine Ketones Neg Urine Blood Neg Urine Nitrite Neg Urine Bilirubin Mod Urine Ictotest Positive Urine Urobilinogen 4.0 Ur Leukocyte Esterase Neg Urine WBC (Auto) 4.0 Urine RBC (Auto) < 1.0 U Epithel Cells (Auto) 1.0 Urine Bacteria (Auto) 1+ Urine Mucus Few Plasma/Serum Alcohol < 0.01 Assessment and Plan - Patient Problems (1) Jaundice Current Visit: Yes Status: Acute Plan to address problem: - Likely (based on imaging and history) acute alcoholic hepatitis on chronic cirrhosis. - Agree with MVI and IV hydration. - Will add CIWA protocol. - CT with IV contrast to assess for intrinsic liver disease (mass, etc). - Encourage nutrition and abstinence. - Hepatitis panel ordered. (2) Alcohol abuse Current Visit: Yes Status: Acute (3) Cirrhosis Current Visit: Yes Status: Acute
[2018-07-23 18:50] LABS: Amphetamine Screen,Urine PRESUMPTIVE NEGATIVE; Benzodiazepines Screen,Urine PRESUMPTIVE NEGATIVE; Cannabinoid Screen,Urine PRESUMPTIVE NEGATIVE; Cocaine Screen,Urine PRESUMPTIVE NEGATIVE; Methadone Screen,Urine PRESUMPTIVE NEGATIVE; Opiate Screen,Urine PRESUMPTIVE NEGATIVE
[2018-07-23] MEDS: MAG-OX PO SCH (22:34)
[2018-07-23] MEDS: SODIUM CHLORIDE FLUSH SYRINGE 10 ML IV SCH (22:34)
[2018-07-24 05:54] LABS: Alanine Aminotransferase 42 units/L (7-56); Albumin 2.2 g/dL (3.9-5); BUN/Creatinine Ratio 40; Blood Urea Nitrogen 8 mg/dL (9-20); Calcium 7.3 mg/dL (8.4-10.2); Hemolysis Index 0
[2018-07-24] MEDS: SODIUM CHLORIDE FLUSH SYRINGE 10 ML IV PRN (10:00)
[2018-07-24] MEDS: MAG-OX PO SCH ×2 (10:00→22:26)
[2018-07-24] MEDS: VITAMIN B-1 PO SCH (10:00)
[2018-07-24] MEDS: FOLVITE PO SCH (10:00)
[2018-07-24] MEDS: THERAGRAN Tab PO SCH (10:00)
[2018-07-24] MEDS: SODIUM CHLORIDE FLUSH SYRINGE 10 ML IV SCH (10:00)
[2018-07-24] MEDS ORDERED: NACL 0.9% 250 ML ONE (11:23)
[2018-07-24] MEDS ORDERED: PNEUMOVAX 23 IM ONE (12:00)
[2018-07-24] MEDS ORDERED: AFLURIA QUAD 2018-2019 SYRINGE IM ONE (12:00)
--- NOTE | 2018-07-24 12:04 | Progress Note ---
Assessment and Plan Assessment and plan: 58 YO Male with ETOH Dependence, HTN presents withshortness of breath, genera lized edema, and chest discomfort over the past 1 week, with worsening symptoms over the same time frame. Past History Past Medical History: hypertension Alcoholic hepatitis/jaundice likely cause of jaundice, Gi input appreciated -fup Hep serology -fup CT A/P Hypokalemia/hypomagnesemia -replete etoh abuse with withdrawal thiamine, folate, ciwa protocol d5 containing IVF DVT prophylaxis SCD to BLE while in bed. History Interval history: c/o jaundice, and fatigue Review of systems Constitutional: No fevers, no joint pains CVS: No chest pain, no orthopnea, no dyspnea on exertion, no pedal edema GI: No abdominal pain, no diarrhea, no vomiting, no constipation Respiratory: No shortness of breath, no wheezing, no coughing Hospitalist Physical - Physical exam Narrative exam: General.: Appears well, no distress, nontoxic HEENT: Moist mucous membranes, icteric sclera, extraocular muscles intact, no lymphadenopathy Neck: supple Cardiac: S1-S2 heard Lungs: clear to auscultation bilaterally Abdomen: soft , nontender, nondistended, bowel sounds positive Extremities: no edema clubbing or cyanosis Skin: no rash or lesions, very jaundiced Neurologic: no gross focal deficits Psych: appropriate behavior, appropriate mood, corporative, judgment intact - Constitutional Vitals: Temp Pulse Resp BP Pulse Ox 99.2 F 80 20 108/60 96 07/24/18 05:25 07/24/18 05:25 07/24/18 05:25 07/24/18 05:25 07/24/18 05:25 General appearance: Present: mild distress Results - Labs CBC & Chem 7: 07/25/18 04:39 07/25/18 04:39 Labs: Laboratory Last Values WBC 7.7 K/mm3 (4.5-11.0) 07/23/18 08:45 RBC 3.08 M/mm3 (3.65-5.03) L 07/23/18 08:45 Hgb 11.0 gm/dl (11.8-15.2) L 07/23/18 08:45 Hct 30.6 % (35.5-45.6) L 07/23/18 08:45 MCV 99 fl (84-94) H 07/23/18 08:45 MCH 36 pg (28-32) H 07/23/18 08:45 MCHC 36 % (32-34) H 07/23/18 08:45 RDW 16.7 % (13.2-15.2) H 07/23/18 08:45 Plt Count 103 K/mm3 (140-440) L 07/23/18 08:45 Sodium 134 mmol/L (137-145) L 07/24/18 05:14 Potassium 3.0 mmol/L (3.6-5.0) L 07/24/18 05:14 Chloride 98.0 mmol/L (98-107) 07/24/18 05:14 Carbon Dioxide 27 mmol/L (22-30) 07/24/18 05:14 Anion Gap 12 mmol/L 07/24/18 05:14 BUN 8 mg/dL (9-20) L 07/24/18 05:14 Creatinine < 0.2 mg/dL (0.8-1.5) L 07/24/18 05:14 Estimated GFR > 60 ml/min 07/24/18 05:14 BUN/Creatinine Ratio 40 % 07/24/18 05:14 Glucose 96 mg/dL (75-100) 07/24/18 05:14 Calcium 7.3 mg/dL (8.4-10.2) L 07/24/18 05:14 Magnesium 1.60 mg/dL (1.7-2.3) L 07/24/18 05:14 Total Bilirubin 15.10 mg/dL (0.1-1.2) H 07/24/18 05:14 Direct Bilirubin 0.2 mg/dL (0-0.2) 07/23/18 08:45 Indirect Bilirubin 16.9 mg/dL 07/23/18 08:45 AST 125 units/L (5-40) H 07/24/18 05:14 ALT 42 units/L (7-56) 07/24/18 05:14 Alkaline Phosphatase 163 units/L (35-129) H 07/24/18 05:14 NT-Pro-B Natriuret Pep 69.91 pg/mL (0-900) 07/23/18 08:45 Total Protein 5.6 g/dL (6.3-8.2) L 07/24/18 05:14 Albumin 2.2 g/dL (3.9-5) L 07/24/18 05:14 Albumin/Globulin Ratio 0.6 % 07/24/18 05:14 Urine Color Yellow (Yellow) 07/23/18 Unknown Urine Turbidity Clear (Clear) 07/23/18 Unknown Urine pH 5.0 (5.0-7.0) 07/23/18 Unknown Ur Specific [place] 1.010 (1.003-1.030) 07/23/18 Unknown Urine Protein <15 mg/dl mg/dL (Negative) 07/23/18 Unknown Urine Glucose (UA) Neg mg/dL (Negative) 07/23/18 Unknown Urine Ketones Neg mg/dL (Negative) 07/23/18 Unknown Urine Blood Neg (Negative) 07/23/18 Unknown Urine Nitrite Neg (Negative) 07/23/18 Unknown Urine Bilirubin Mod (Negative) 07/23/18 Unknown Urine Ictotest Positive (Negative) 07/23/18 Unknown Urine Urobilinogen 4.0 mg/dL (<2.0) 07/23/18 Unknown Ur Leukocyte Esterase Neg (Negative) 07/23/18 Unknown Urine WBC (Auto) 4.0 /HPF (0.0-6.0) 07/23/18 Unknown Urine RBC (Auto) < 1.0 /HPF (0.0-6.0) 07/23/18 Unknown U Epithel Cells (Auto) 1.0 /HPF (0-13.0) 07/23/18 Unknown Urine Bacteria (Auto) 1+ /HPF (Negative) 07/23/18 Unknown Urine Mucus Few /HPF 07/23/18 Unknown Urine Opiates Screen Presumptive negative 07/23/18 18:00 Urine Methadone Screen Presumptive negative 07/23/18 18:00 Ur Barbiturates Screen Presumptive negative 07/23/18 18:00 Ur Phencyclidine Scrn Presumptive negative 07/23/18 18:00 Ur Amphetamines Screen Presumptive negative 07/23/18 18:00 U Benzodiazepines Scrn Presumptive negative 07/23/18 18:00 Urine Cocaine Screen Presumptive negative 07/23/18 18:00 U Marijuana (THC) Screen Presumptive negative 07/23/18 18:00 Drugs of Abuse Note Disclamer 07/23/18 18:00 Plasma/Serum Alcohol < 0.01 % (0-0.07) 07/23/18 14:55 Hep Bs Antigen Non-reactive (Negative) 07/24/18 05:14 Hepatitis C Antibody Non-reactive (NonReactive) 07/24/18 05:14
[2018-07-24] MEDS ORDERED: MAGNESIUM SULFATE 3 GM in NACL 0.9% 100 ML IV ONE (12:07)
--- NOTE | 2018-07-24 13:08 | Cat Scan Report ---
CT ABDOMEN PELVIS WITH CONTRAST: HISTORY: Jaundice. COMPARISON: Noncontrast CT abdomen and pelvis performed 07/23/18. TECHNIQUE: Helical CT in 1.25mm intervals following IV contrast. Sagittal and coronal reconstructions. FINDINGS: Lung bases: Trace right pleural effusion has developed. Heart size is within normal limits. Liver: Mild fatty infiltration of the liver is again noted. Subtle hypertrophy of the left hepatic lobe and subtle surface nodularity again suggests early cirrhosis. No enhancing lesion is identified in the liver. Biliary system: The gallbladder is partially contracted. A few small calcified stones are identified in the gallbladder fundus. No evidence for biliary dilatation or choledocholithiasis. Pancreas: Normal. Spleen: Normal. Kidneys/ureters/bladder: Within normal limits. 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 No evidence for focal renal lesion or hydronephrosis. Normal bladder and prostate gland. Adrenal glands: Normal. Aorta: Normal. Intestines: Only a small amount of oral contrast is present in the proximal GI system. There is no evidence for focal inflammation or obstruction. Mild diverticulosis of the distal colon is noted. Appendix: Not confidently identified. Pelvic viscera: Normal. Ascites: None. Adenopathy: None. Musculoskeletal: No fracture or suspicious bony lesion. IMPRESSION: Mild fatty infiltration of the liver. Subtle findings of cirrhosis. No splenomegaly, varicosities or ascites. Cholelithiasis. No biliary obstruction. Diverticulosis of the distal colon. Trace right pleural effusion.
--- NOTE | 2018-07-24 15:13 | Gastroenterology Progress Note ---
Addendum entered and electronically signed by GILBERT STOUT MD 07/24/18 22:41: I have personally interviewed and examined the patient. I agree with the above A/P. The patient is clinically stable and labs slightly better (though appears to have mild DTs). OK to d/c home when clinically stable. Will follow. Continue current supportive care. Would avoid steroids unless DF worsens. Original Note: Assessment and Plan 1.jaundice -hepatitis B and C negative -plt 103 -LFTs improving (AST 125, ALT 42, Alk phos 163, T.chuy 15.10) -abd CT showed fatty liver, cirrhosis, gallstones, and diverticulosis (no evidence of biliary dilatation, splenomegaly, varicosities, or ascites) -etiology-likely acute alcoholic hepatitis on chronic cirrhosis -ammonia and INR in am -continue MVI -electrolyte management per primary team -continue to trend labs and supportive care -alcohol cessation -[facility] protocol -will follow 2.ETOH abuse 3.cirrhosis Subjective Date of service: 07/24/18 Principal diagnosis: jaundice Interval history: Patient resting in bed w/o acute distress. Noted to be somnolent. No evidence of abd pain, N/V, or signs of bleeding. Objective - Constitutional Vitals: Temp Pulse Resp BP Pulse Ox 97.8 F 88 20 122/73 98 07/24/18 12:09 07/24/18 12:09 07/24/18 12:09 07/24/18 12:09 07/24/18 12:09 General appearance: no acute distress - Respiratory Respiratory: bilateral: CTA (anterior) - Cardiovascular Rhythm: regular Heart Sounds: Present: S1 & S2 - Gastrointestinal General gastrointestinal: Present: soft, non-tender, distended (mildly), normal bowel sounds - Labs CBC & Chem 7: 07/23/18 08:45 07/24/18 05:14 Labs: Laboratory Results - last 24 hr 07/23/18 07/23/18 07/23/18 08:45 14:55 18:00 Sodium Potassium Chloride Carbon Dioxide Anion Gap BUN Creatinine Estimated GFR BUN/Creatinine Ratio Glucose Calcium Magnesium Total Bilirubin 17.10 H Direct Bilirubin 0.2 Indirect Bilirubin 16.9 AST ALT Alkaline Phosphatase Total Protein Albumin Albumin/Globulin Ratio Urine Opiates Screen Presumptive negative Urine Methadone Screen Presumptive negative Ur Barbiturates Screen Presumptive negative Ur Phencyclidine Scrn Presumptive negative Ur Amphetamines Screen Presumptive negative U Benzodiazepines Scrn Presumptive negative Urine Cocaine Screen Presumptive negative U Marijuana (THC) Screen Presumptive negative Drugs of Abuse Note Disclamer Plasma/Serum Alcohol < 0.01 Hep Bs Antigen Hepatitis C Antibody 07/24/18 07/24/18 07/24/18 05:14 05:14 05:14 Sodium 134 L Potassium 3.0 L Chloride 98.0 Carbon Dioxide 27 Anion Gap 12 BUN 8 L Creatinine < 0.2 L Estimated GFR > 60 BUN/Creatinine Ratio 40 Glucose 96 Calcium 7.3 L Magnesium 1.60 L Total Bilirubin 15.10 H Direct Bilirubin Indirect Bilirubin AST 125 H ALT 42 Alkaline Phosphatase 163 H Total Protein 5.6 L Albumin 2.2 L Albumin/Globulin Ratio 0.6 Urine Opiates Screen Urine Methadone Screen Ur Barbiturates Screen Ur Phencyclidine Scrn Ur Amphetamines Screen U Benzodiazepines Scrn Urine Cocaine Screen U Marijuana (THC) Screen Drugs of Abuse Note Plasma/Serum Alcohol Hep Bs Antigen Non-reactive Hepatitis C Antibody Non-reactive
[2018-07-24] MEDS: KCL 20 MEQ in D5NS 0.2% 1,000 ML IV SCH (15:48)
[2018-07-25] MEDS: KCL 20 MEQ in D5NS 0.2% 1,000 ML IV SCH ×2 (01:21→10:33)
[2018-07-25 05:32] VITALS: BP 121/72
[2018-07-25 05:44] LABS: Basophils # (Auto) 0.1 K/mm3 (0.0-0.1); Eosinophils # (Auto) 0.1 K/mm3 (0.0-0.4); Hematocrit 28.3 % (35.5-45.6); Hemoglobin 10.2 gm/dl (11.8-15.2); Lymphocytes # (Auto) 1.1 K/mm3 (1.2-5.4); Lymphocytes % (Auto) 17.2 % (13.4-35.0); Mean Corpuscular HGB Conc 36 % (32-34); Mean Corpuscular Volume 99 fl (84-94); Platelet Count 121 K/mm3 (140-440); Red Blood Count 2.85 M/mm3 (3.65-5.03); Red Cell Distribution Width 16.6 % (13.2-15.2)
[2018-07-25 05:47] LABS: INR 1.89 (0.87-1.13)
[2018-07-25 06:03] LABS: Alanine Aminotransferase 46 units/L (7-56); Albumin 2.1 g/dL (3.9-5); BUN/Creatinine Ratio 35; Blood Urea Nitrogen 7 mg/dL (9-20); Hemolysis Index 0
[2018-07-25] MEDS: THERAGRAN Tab PO SCH (10:34)
[2018-07-25] MEDS: FOLVITE PO SCH (10:34)
[2018-07-25] MEDS: SODIUM CHLORIDE FLUSH SYRINGE 10 ML IV PRN (10:34)
[2018-07-25] MEDS: MAG-OX PO SCH (10:34)
[2018-07-25] MEDS: VITAMIN B-1 PO SCH (10:34)
--- NOTE | 2018-07-25 11:24 | Gastroenterology Progress Note ---
Addendum entered and electronically signed by GILBERT STOUT MD 07/25/18 14:59: I have personally interviewed and examined the patient. I agree with the above A/P. Patient is clinically improved. Strongly urged abstinence from EtOH. Original Note: Assessment and Plan 1.jaundice -hepatitis panel negative -plt 121. INR 1.89 -LFTs improving (AST 126, ALT 46, Alk phos 177, T.chuy 13.90) -abd CT showed fatty liver, cirrhosis, gallstones, and diverticulosis (no evidence of biliary dilatation, splenomegaly, varicosities, or ascites) -etiology-likely acute alcoholic hepatitis on chronic cirrhosis -ammonia 126- no clinical evidence of encephalopathy -no plans for steroids unless DF worsens -clinically, patient is stable w/o GI complaints. Tolerating diet. -continue MVI and supportive care -electrolyte management per primary team -alcohol cessation discussed/encouraged with patient -CIWA protocol -patient okay to be d/c per GI standpoint with follow up in clinic in 1-2 weeks for further management -will sign off, please call if needed 2.ETOH abuse 3.cirrhosis Subjective Date of service: 07/25/18 Principal diagnosis: jaundice Interval history: Patient sitting up in bedside chair this morning w/o distress. Denies abd pain, N/V, or signs of bleeding. Tolerating diet. Objective - Constitutional Vitals: Temp Pulse Resp BP Pulse Ox 99.0 F 82 18 121/72 98 07/25/18 04:10 07/25/18 04:10 07/25/18 04:10 07/25/18 04:10 07/25/18 09:49 General appearance: no acute distress - EENT Eyes: scleral icterus - Respiratory Respiratory: bilateral: CTA - Cardiovascular Rhythm: regular Heart Sounds: Present: S1 & S2 - Gastrointestinal General gastrointestinal: Present: soft, non-tender, distended (slight), normal bowel sounds - Neurologic Neurological: alert and oriented x3 - Labs CBC & Chem 7: 07/25/18 04:39 07/25/18 04:39 Labs: Laboratory Results - last 24 hr 07/25/18 07/25/18 07/25/18 04:39 04:39 04:39 WBC 6.4 RBC 2.85 L Hgb 10.2 L Hct 28.3 L MCV 99 H MCH 36 H MCHC 36 H RDW 16.6 H Plt Count 121 L Lymph % (Auto) 17.2 [place] % (Auto) 16.0 H Eos % (Auto) 2.0 Baso % (Auto) 1.0 Lymph # 1.1 L [place] # 1.0 H Eos # 0.1 Baso # 0.1 Seg Neutrophils % 63.8 Seg Neutrophils # 4.1 PT 22.1 H INR 1.89 H Sodium 135 L Potassium 3.1 L Chloride 101.5 Carbon Dioxide 23 Anion Gap 14 BUN 7 L Creatinine < 0.2 L Estimated GFR > 60 BUN/Creatinine Ratio 35 Glucose 112 H Calcium 7.0 L Total Bilirubin 13.90 H AST 126 H ALT 46 Alkaline Phosphatase 177 H Ammonia Total Protein 5.5 L Albumin 2.1 L Albumin/Globulin Ratio 0.6 07/25/18 04:39 WBC RBC Hgb Hct MCV MCH MCHC RDW Plt Count Lymph % (Auto) [place] % (Auto) Eos % (Auto) Baso % (Auto) Lymph # [place] # Eos # Baso # Seg Neutrophils % Seg Neutrophils # PT INR Sodium Potassium Chloride Carbon Dioxide Anion Gap BUN Creatinine Estimated GFR BUN/Creatinine Ratio Glucose Calcium Total Bilirubin AST ALT Alkaline Phosphatase Ammonia 126.0 H Total Protein Albumin Albumin/Globulin Ratio
--- NOTE | 2018-07-25 13:51 | Discharge Summary ---
Providers - Providers Date of Admission: 07/23/18 14:42 Attending physician: SARBJIT HERNANDEZ MD 07/23/18 14:47 Consult to Physician [CONS] Routine Comment: Consulting Provider: GILBERT STOUT Physician Instructions: Reason For Exam: obstructive jaund Primary care physician: JOHN PEDROZA MD Hospitalization Condition: Fair Hospital course: 58 YO Male with ETOH Dependence, HTN presents with shortness of breath, and epigastricdiscomfort over the past 1 week, with worsening symptoms over the same time frame. * he was admitted for etoh hepatitis, hepatitis serology was neg, he received IVF, thiamine, folate, ciwa protocol, and supportive care * his electrolytes were repleted and he was counseled on etoh cessation Diagnosis Alcoholic hepatitis/jaundice Hypokalemia/hypomagnesemia etoh abuse with withdrawal Disposition: MD- TO HOME OR SELFCARE Time spent for discharge: 33 minutes Core Measure Documentation - Palliative Care Palliative Care/ Comfort Measures: Not Applicable - Core Measures Any of the following diagnoses?: none Exam - Constitutional Vitals: Temp Pulse Resp BP Pulse Ox 99.0 F 82 18 121/72 98 07/25/18 04:10 07/25/18 04:10 07/25/18 04:10 07/25/18 04:10 07/25/18 09:49 General appearance: Present: no acute distress, well-nourished - EENT Eyes: Present: PERRL ENT: hearing intact, clear oral mucosa - Neck Neck: Present: supple, normal ROM - Respiratory Respiratory effort: normal Respiratory: bilateral: CTA - Cardiovascular Heart Sounds: Present: S1 & S2. Absent: rub, click - Extremities Extremities: pulses symmetrical, No edema Peripheral Pulses: within normal limits - Abdominal General gastrointestinal: Present: soft, non-tender, non-distended, normal bowel sounds Male genitourinary: Present: normal - Integumentary Integumentary: Present: clear, warm, dry - Musculoskeletal Musculoskeletal: gait normal, strength equal bilaterally - Psychiatric Psychiatric: appropriate mood/affect, intact judgment & insight - Neurologic Neurologic: CNII-XII intact, moves all extremities Plan Additional Instructions: please follow up with your doctor within 1 week to have your blood tests (potassium and magnesium) checked Follow up with: JOHN PEDROZA MD [Primary Care Provider] - 3-5 Days SIENNA RICKS MD [Staff Physician] - 7 Days Prescriptions: Folic Acid [Folvite] 1 mg PO QDAY #30 tablet Magnesium Oxide [Mag-Ox] 400 mg PO QDAY #30 tablet Multivitamin Tab [Multiple Vitamin TAB (Theragran)] 1 each PO QDAY #30 tablet Potassium Chloride [K-Dur] 40 meq PO BID 30 Days tablet Thiamine [Vitamin B-1] 100 mg PO QDAY #30 tablet
[2018-07-25] MEDS ORDERED: MAG-OX PO SCH (14:00)
[2018-07-25] MEDS ORDERED: K-DUR PO SCH (15:00)
--- NOTE | 2018-07-26 13:02 | Query- Nutrition ---
Anna Tejada___Derianuigbtricia Date:__07/26/18 Computed Tomography Scanner Operator/CDS:___sarina_/ Aishwarya Phone#:__[phone] Exercise your independent professional judgment when responding to query. Questions asked do not imply a particular answer is desired or expected. We greatly appreciate your clarification on this issue. Clinical Documentation States: 58 YO Male with ETOH Dependence, HTN presents withshortness of breath, generalized edema, and chest discomfort over the past 1 week, with worsening symptoms over the same time frame. Alcoholic hepatitis/jaundice Hypokalemia/hypomagnesemia -replete etoh abuse with withdrawal Clinical Findings Show: 07/24/18 07/25/18 Albumin 2.2 2.1 Please select the most appropriate option [ ] Mild Malnutrition [ ] Moderate Malnutrition [ ] Severe Malnutrition Serum Albumin 2.8 to 3.4 g/dl or Pre-albumin 5 to 17 mg/dl1,2 Inadequate nutritional intake1,2,3,4 NPO > 5 days Weight loss: 5% in 1 month or 7.5% in 3 months or 10% in 6 months1, 3,4 BMI 16 to 18.4 or Weight <90% of ideal body weight1,2,3,4 Serum Albumin < 2.8 g/ dl1,2 Lymphocytes < 1500/ L2 Inadequate nutritional intake3, high stress e.g. major trauma, sepsis,pancreatitis, sen etc. Decubitus ulcers1,2, , skin breakdown2, easy hair pluckability2 Weight <80% standard for height2 Triceps skin fold <3 mm2 Mid-arm muscle circumference <15 cm2 Creatinine-height index <60% standard2 [ ] Cachexia [ ] Emaciated w/Malnutrition [ x] Other: liver disease [ ] Unable to determine [ ] Comment/Explanation: Present on Admission: [x ] Yes (Y) [ ] Clinically undeterminable (W) [ ] No (N) Please also document response in your Progress Notes and/or Discharge Summary and indicate if the condition was present on admission. MTDD
== END 2018-07-25 18:05 | disposition home or self-care (01) | DRG 432 ==
LOC: EDBD → ED 07:49 → 3A 14:42
PROVIDERS: ADMIT Internal Medicine; ATTEND Internal Medicine
PROC: 3E0234Z Introduction of Serum, Toxoid and Vaccine into Muscle, Percutaneous Approach (ICD-10-PCS; principal; 2018-07-23)
DX: K70.10 Alcoholic hepatitis without ascites (principal); K83.1 Obstruction of bile duct; F10.239 Alcohol dependence with withdrawal, unspecified; E87.6 Hypokalemia; K70.30 Alcoholic cirrhosis of liver without ascites; I10 Essential (primary) hypertension; F17.200 Nicotine dependence, unspecified, uncomplicated; E83.42 Hypomagnesemia; Y90.0 Blood alcohol level of less than 20 mg/100 ml; Z79.899 Other long term (current) drug therapy; Z23 Encounter for immunization
CPT/HCPCS: 36415; 71046; 74176; 74177; 80053; 80307; 80320; 81001; 82140; 82247; 82248; 83735; 83880; 85025; 85027; 85610; 86706; 86709; 86803; 90471; 90686; 90732; 96360; 96361; G0378; G0008; G0009; G0480; J2060; J3475; J3480; Q9967

== ENCOUNTER 2018-08-30 08:06 | Day surgery (SDC) | payer MEDICARE ==
[2018-08-30] MEDS ORDERED: NACL 0.9% 1000 ML 1,000 ML IV SCH (10:00)
[2018-08-30] MEDS ORDERED: WATER FOR IRRIG STERILE IR ONE (10:58)
[2018-08-30] MEDS ORDERED: DIPRIVAN 10 MG/ML IV ONE ×3 (11:01→11:02)
[2018-08-30] MEDS ORDERED: XYLOCAINE 2% INFILTRATI ONE (11:02)
--- NOTE | 2018-08-30 11:03 | Anesthesia Consultation ---
Anesthesia Consult and Med Hx Date of service: 08/30/18 - Airway Anesthetic Teeth Evaluation: Poor, Chipped (blackened teeth) ROM Head & Neck: Adequate Mental/Hyoid Distance: Adequate Mallampati Class: Class III Intubation Access Assessment: Possibly Difficult - Pre-Operative Health Status ASA Pre-Surgery Classification: ASA4 Proposed Anesthetic Plan: MAC - Pulmonary Hx Asthma: No COPD: No Hx Pneumonia: No - Cardiovascular System Hx Hypertension: Yes Hx Pacemaker: No Hx Internal Defibrillator: No - Central Nervous System Hx Psychiatric Problems: No - Endocrine Hx End Stage Renal Disease: No Hx Cirrhosis: Yes (jaundice; distended abdomen; esophageal varices) - Other Systems Hx Alcohol Use: Yes (quit june)
--- NOTE | 2018-08-30 11:03 | Anesthesia Day of Surgery ---
Anesthesia Day of Surgery - Day of Surgery Patient Examined: Yes Patient H&P Reviewed: Yes Patient is NPO: Yes
--- NOTE | 2018-08-30 11:39 | Procedure Note ---
Date of procedure: 08/30/18 Pre-op diagnosis: Dyspepsia/ Cirrhosis/ Colon Polyp Screening/ F/H/O Cancer (Breast Cancer-si Post-op diagnosis: other (Incidental, Grade 1 Esophageal Varices/Moderate, Distal Erosive Esophagitis (R/O Nichols's Esophagus)/ Gastritis/ No Colon Polyps noted/ Moderate, Left colon Diverticuli/ Minor,Internal Hemorrhoid) Procedure: EGD with Biopsy and Colonoscopy [place] [facility] [place]: GERMAIN RICH Estimated blood loss: minimal Pathology: list Specimen disposition: to lab Condition: stable Disposition: same day (Treat with PPI. Avoid aspirin and NSAID for 5 days. follow up in 1 to 2 weeks ([phone]).)
--- NOTE | 2018-08-30 11:41 | Post Anesthesia Evaluation ---
- Post Anesthesia Evaluation Patient Participated: Yes (sleeping) Airway Patent: Yes Stable Respiratory Function: Yes Nausea/Vomiting: No Temp > 96.8F: Yes Pain Manageable: Yes Adequeate Hydration: Yes Anesthesia Complications: No Block Receding Appropriately: Not Applicable Patient on Ventilator: No
--- NOTE | 2018-08-30 11:47 | Operative Report ---
PROCEDURE: Colonoscopy. INDICATIONS: The patient is a 58-year-old gentleman with an underlying history of cirrhosis, portal hypertension. EGD was done for dyspepsia, which showed presence of grade 1 incidental esophageal varices, moderate erosive esophagitis for which Nichols's is to be ruled out and gastritis. Colonoscopy was done as part of colon polyp screening. DESCRIPTION OF PROCEDURE: Procedure was done after getting informed consent with MAC anesthesia. Initial rectal exam was unremarkable. Instrument was passed through the rectum onto the cecum, which was identified by the ileocecal valve and the appendiceal orifice. Cecum, ascending colon and transverse colon showed normal mucosa. Moderate diverticular disease was noted in the left colon and the rectum involving the descending colon, the sigmoid and the rectum showed some minor internal hemorrhoid. There were no colon polyps noted. No biopsies associated with the colonoscopy and no bleeding associated with the colonoscopy. ASSESSMENT: Colon polyp screening, family history of cancer. The patient's sister had breast cancer. No colon polyps noted. Moderate left colon diverticular disease, minor internal hemorrhoid. The patient will be encouraged to take fiber supplements, treated with PPI because of the upper GI findings of erosive esophagitis, gastritis. Asked to avoid aspirin, aspirin-related products for the next few days because of biopsy done during the EGD and follow up in the office in 1-2 weeks' time. RN, Niki Turcios was in the room throughout the entirety of the procedure. JOB# [id number] CHERI/CHENCHO
--- NOTE | 2018-08-30 11:52 | Operative Report ---
PROCEDURE: Esophagogastroduodenoscopy with biopsy. INDICATIONS: This is a 58-year-old gentleman, who has an underlying history of cirrhosis, portal hypertension, and family history of cancer. The patient's sister had breast cancer. EGD was done because the patient had been having some dyspeptic symptoms and also to assess for any associated esophageal varices. DESCRIPTION OF PROCEDURE: Procedure was done after getting informed consent with MAC anesthesia. Instrument was passed through the hypopharynx into the esophagus, which showed incidental grade 1 esophageal varices that flattened out after the esophagus was dilated. There was moderate distal erosive esophagitis noted and biopsy was done to rule out for possible Nichols's esophagus. Stomach showed gastritis. No ulcers were noted in the straight or the retroverted view. Pylorus was patent. Duodenum in the first and second portion appeared normal. Biopsy was done from the gastric body, angularis incisura, and gastric antrum to rule out for H. pylori and atrophic gastritis. There was minimal bleeding from the biopsy sites. No complications associated with the procedure. ASSESSMENT AND PLAN: 1. Dyspepsia, cirrhosis, portal hypertension. 2. Grade 1 incidental esophageal varices. 3. Moderate erosive esophagitis, rule out Nichols's esophagus. 4. Gastritis. There was minimal bleeding from the biopsy sites. No complications associated with the procedure. The patient will be treated with PPI and also as an outpatient the patient's diuretic medications will be optimized and the patient will be asked to follow up in the office in 1-2 weeks' time. Also, because of her family history of cancer and age, a colonoscopy will also be done for further assessment. RN, Niki Turcios was in the room throughout the entirety of the procedure. JOB# [id number] CHERI/CHENCHO
[2018-08-30 13:34] VITALS: BP 128/72
== END 2018-08-30 08:07 | disposition home or self-care (01) ==
LOC: EDBD → GIO 08:06
DX: Z12.11 Encounter for screening for malignant neoplasm of colon (principal); K29.50 Unspecified chronic gastritis without bleeding; K74.60 Unspecified cirrhosis of liver; I85.00 Esophageal varices without bleeding; K20.8 Other esophagitis; K76.6 Portal hypertension; K57.30 Diverticulosis of large intestine without perforation or abscess without bleeding; I10 Essential (primary) hypertension; K64.8 Other hemorrhoids; Z79.899 Other long term (current) drug therapy; Z72.89 Other problems related to lifestyle; Z98.890 Other specified postprocedural states; Z80.8 Family history of malignant neoplasm of other organs or systems; Z85.3 Personal history of malignant neoplasm of breast
CPT/HCPCS: 43239; 88305; 88342; G0121; J2704; J7030

== ENCOUNTER 2018-09-01 13:22 | Inpatient (IN) | payer MEDICARE ==
--- NOTE | 2018-09-01 13:38 | Emergency Department Report ---
Blank Doc - Documentation Documentation: This is a 58-year-old male that presents with dizziness x1 week. Denies any c hest pain or SOB. Stated had a sycnope with present. Denies any facial dropping or one sided weakness. Exam: neuro exam normal. Normal muscle strength chuy This initial assessment diagnostic orders/clinical plan/treatment(s) is/are subject to change based on patient's health status, clinical progression and re- assessment by fellow clinical providers in the ED. Further treatment and workup at subsequent clinical providers discretion. Patient/guardians urged not to elope from ED s their condition may be serious if not clinically assessed and managed. Initial orders include: 1-Patient sent to [facility] for further evaluation and treatment 2-labs 3- EKG 4- orthostatic vitals
[2018-09-01] MEDS ORDERED: PROTONIX IV ONE (14:11)
[2018-09-01] MEDS ORDERED: NACL 0.9% 1000 ML 1,000 ML ONE (14:25)
[2018-09-01] MEDS ORDERED: NACL 0.9% 1000 ML 1,000 ML IV ONE (14:46)
[2018-09-01 14:54] LABS: Basophils # (Auto) 0.1 K/mm3 (0.0-0.1); Basophils % (Auto) 1.1 % (0.0-1.8); Hematocrit 27.7 % (35.5-45.6); Hemoglobin 9.5 gm/dl (11.8-15.2); Lymphocytes # (Auto) 1.4 K/mm3 (1.2-5.4); Lymphocytes % (Auto) 16.6 % (13.4-35.0); Mean Corpuscular HGB Conc 34 % (32-34); Mean Corpuscular Volume 96 fl (84-94); Monocytes # (Auto) 0.5 K/mm3 (0.0-0.8); Monocytes % (Auto) 6.5 % (0.0-7.3); Platelet Count 143 K/mm3 (140-440); Red Blood Count 2.88 M/mm3 (3.65-5.03); Red Cell Distribution Width 13.7 % (13.2-15.2)
--- NOTE | 2018-09-01 14:59 | Cat Scan Report ---
FINAL REPORT EXAM: CT HEAD/BRAIN WO CON HISTORY: dizziness with syncope TECHNIQUE: CT of the head was performed. No intravenous contrast was administered. PRIORS: 11/28/2015 FINDINGS: There is no evidence of intracranial hemorrhage. There is no edema, mass effect or midline shift. There are no abnormal extra-axial fluid collections. The ventricles are appropriate for brain volume. There is no skull fracture seen. The visualized aspects of the sinuses are clear. IMPRESSION: There is no acute intracranial abnormality identified.
[2018-09-01] MEDS ORDERED: PROTONIX 80 MG in NACL 0.9% 100 ML IV SCH (15:00)
[2018-09-01] MEDS ORDERED: SandoSTATIN 500 MCG in NACL 0.9% 100 ML IV SCH (15:00)
[2018-09-01 15:01] LABS: INR 1.55 (0.87-1.13)
[2018-09-01 15:02] LABS: Partial Thromboplastin Time 33.6 Sec. (24.2-36.6)
[2018-09-01 15:09] LABS: Alanine Aminotransferase 73 units/L (7-56); Albumin 2.4 g/dL (3.9-5); BUN/Creatinine Ratio 54; Blood Urea Nitrogen 27 mg/dL (9-20); Hemolysis Index 29
--- NOTE | 2018-09-01 15:36 | Event Note ---
Date: 09/01/18 Called about patient for consult. Patient follows with Dr. Mai outpatient and had outpatient EGD/colonoscopy done with him on 08/30/2018. Notified ED physician to contact Dr. Mai.
--- NOTE | 2018-09-01 15:46 | Emergency Department Report ---
HPI - General Chief Complaint: Dizziness Time Seen by Provider: 09/01/18 13:31 - HPI HPI: 58-year-old male presents to the emergency department from home with complaint of feeling dizzy all morning. When the patient got to the emergency department, he had a large volume of hematemesis with dark clots. The patient is awake and denies any significant abdominal or chest pain. The patient had a colonoscopy and EGD done here [address] Esposito that showed gastritis, esophagitis and grade 1 esophageal varices. The patient has a h istory of liver cirrhosis and ascites secondary to previous alcohol abuse. ED Past Medical Hx - Past Medical History Previous Medical History?: Yes Hx Hypertension: Yes Hx Congestive Heart Failure: No Hx Diabetes: No Hx Asthma: No Hx COPD: No Hx HIV: No Additional medical history: concussion, cirrhosis of liver - Surgical History Hx Pacemaker: No Hx Internal Defibrillator: No - Social History Smoking Status: Never Smoker Substance Use Type: Alcohol - Medications Home Medications: Home Medications Medication Instructions Recorded Confirmed Last Taken Type Cyclobenzaprine [Flexeril 10 MG 10 mg PO BID PRN #20 tablet 07/17/18 08/30/18 08/28/18 Rx TAB] Folic Acid [Folvite] 1 mg PO QDAY #30 tablet 07/25/18 08/30/18 08/28/18 Rx Magnesium Oxide [Mag-Ox] 400 mg PO QDAY #30 tablet 07/25/18 08/30/18 08/28/18 Rx Multivitamin Tab [Multiple Vitamin 1 each PO QDAY #30 tablet 07/25/18 08/30/18 08/28/18 Rx TAB (Theragran)] Potassium Chloride [K-Dur] 40 meq PO BID 30 Days tablet 07/25/18 08/30/18 08/28/18 Rx Thiamine [Vitamin B-1] 100 mg PO QDAY #30 tablet 07/25/18 08/30/18 08/28/18 Rx Naproxen 500 mg PO BID PRN 08/30/18 08/30/18 Unknown History Omeprazole/Sodium Bicarbonate 1 each PO ONCE 30 Days #30 capsule 08/30/18 Unknown Rx [Omeprazole-Bicarb 20-1,100 Cap] ED Review of Systems ROS: Stated complaint: DIZZINESS Other details as noted in HPI Comment: All other systems reviewed and negative Constitutional: denies: chills, fever Eyes: denies: eye pain, vision change ENT: denies: ear pain, throat pain Respiratory: denies: cough, shortness of breath Cardiovascular: denies: chest pain, palpitations Gastrointestinal: vomiting, hematemesis Genitourinary: denies: dysuria, discharge Musculoskeletal: denies: back pain, arthralgia Skin: denies: rash, lesions Neurological: other (dizziness). denies: headache Physical Exam - Physical Exam Vital Signs: Vital Signs 09/01/18 13:34 Temperature 98.6 F Pulse Rate 117 H Respiratory 20 Rate Blood Pressure 96/54 O2 Sat by Pulse 99 Oximetry Physical Exam: GENERAL: Patient is ill-appearing. HEENT: Normocephalic. Atraumatic. Patient has moist mucous membranes. There is dark clotted blood seen coming from the bilateral nasal passages and oropharynx. EYES: Extraocular motions are intact. Pupils are equal and reactive to light bilaterally. NECK: Supple. Trachea is midline. CHEST/LUNGS: Clear to auscultation. There is no respiratory distress noted. HEART/CARDIOVASCULAR: Regular. There is mild to moderate tachycardia. There is no obvious murmur. ABDOMEN: Abdomen is soft, nontender. Patient has normal bowel sounds. There is no abdominal distention. SKIN: Patient is slightly jaundiced. NEURO: The patient is awake, alert, and oriented. The patient is cooperative. The patient has no focal neurologic deficits. The patient has normal speech. MUSCULOSKELETAL: There is no tenderness or deformity. There is no evidence of acute injury. ED Course Vital Signs 09/01/18 13:34 Temperature 98.6 F Pulse Rate 117 H Respiratory 20 Rate Blood Pressure 96/54 O2 Sat by Pulse 99 Oximetry - Consultations Consultation #1: I had contacted [facility] was notified by Dr. Rosales that the patient follows with Dr. Mai. Dr. Mai was contacted and came and saw the patient in the emergency department. 09/01/18 17:10 ED Medical Decision Making - Lab Data Result diagrams: 09/01/18 14:30 09/01/18 14:30 - Radiology Data Radiology results: report reviewed, image reviewed interpreted by me: Chest x-ray does not show any pneumothorax, pleural effusion, pneumonia or obvious focal consolidation. Abdominal x-ray shows nonspecific nonobstructive bowel gas. EXAM: CT HEAD/BRAIN WO CON HISTORY: dizziness with syncope TECHNIQUE: CT of the head was performed. No intravenous contrast was administered. PRIORS: 11/28/2015 FINDINGS: There is no evidence of intracranial hemorrhage. There is no edema, mass effect or midline shift. There are no abnormal extra-axial fluid collections. The ventricles are appropriate for brain volume. There is no skull fracture seen. The visualized aspects of the sinuses are clear. IMPRESSION: There is no acute intracranial abnormality identified. Transcribed By: TONY Dictated By: YESENIA DARLING MD Electronically Authenticated By: YESENIA DARLING MD Signed Date/Time: 09/01/18 1441 - Medical Decision Making Patient presents to the emergency department secondary to feeling dizzy but then had a copious amount of dark coagulated hematemesis upon arrival. Hemoglobin is 9.5. He was given some Protonix and octreotide. He has elevated total bilirubin. INR 1.55. Patient has been seen in the emergency department by gastroenterology. The patient will be admitted to [facility] and was accepted for admission by the hospitalist, Dr. Romero. - Differential Diagnosis sascha rubén, esophageal variceal bleed, esophagitis, gastritis Critical Care Time: Yes Critical care time in (mins) excluding proc time.: 31 Critical care attestation.: If time is entered above; I have spent that time in minutes in the direct care of this critically ill patient, excluding procedure time. Critical care time was spent on this patient doing his initial evaluation, multiple re-evaluations, ordering an interpretation of labs and imaging, ordering of medications and drops, discussion with the water plant pump operator supervisor. Critical Care Time: 31 minutes ED Disposition Clinical Impression: Upper GI bleed, Total bilirubin, elevated Cirrhosis Qualifiers: Hepatic cirrhosis type: unspecified hepatic cirrhosis Ascites presence: without ascites Qualified Code(s): K74.60 - Unspecified cirrhosis of liver Hematemesis Qualifiers: Nausea presence: with nausea Qualified Code(s): K92.0 - Hematemesis Disposition: OP ADMIT IP TO THIS HOSP Is pt being admited?: Yes Condition: Serious Referrals: ALISA CLARK [Primary Care Provider] - 3-5 Days Time of Disposition: 17:14
--- NOTE | 2018-09-02 00:30 | Consultation ---
HISTORY OF PRESENT ILLNESS: This is a 58-year-old -Turk[place] gentleman with a history of alcoholic liver disease with underlying history of cirrhosis and portal hypertension. He had undergone an EGD and a colonoscopy 2 days ago on 08/30/2018. Colonoscopy was essentially unremarkable other than for the presence of [id number] left colon diverticular disease and minor internal hemorrhoid. No biopsies were done in the colonoscopy. EGD showed presence of an incidental grade 1 esophageal varix and moderately distal erosive esophagitis with possible Nichols's esophagus. Biopsies were done from the distal esophagus as well as from the stomach to rule out for H. pylori and atrophic gastritis. The patient had subsequently done well and was discharged, but again presented to the hospital more than 2 days later with complaining of weakness and then subsequently had a bout of hematemesis and in the ER with the vomiting of dark blood. The patient has been admitted for further observation and possibly will undergo an EGD for further assessment. Agree with the patient's current plan of treating the patient with PPI. The patient has empirically also been placed on octreotide because of the incidental finding of grade 1 esophageal varix. ALLERGIES: He has no known allergies. SOCIAL HISTORY: He had been a drinker until fairly recently. Denies history of tobacco use. PHYSICAL EXAMINATION: GENERAL: He is otherwise alert and communicative and answers appropriately to questions. VITAL SIGNS: At present are stable. His blood pressure is 107/70, pulse is 108, respiration is 20. He weighs 185 pounds and his O2 saturation is 100%. Previously when he initially came in, he was hypotensive with a blood pressure 85/47 and tachycardic with the heart rate of 121, which has since improved with supportive measures. Vitals as stated above. HEENT: Examination shows no JVD. LUNGS: Shows reduced breath sounds. CARDIOVASCULAR: Examination is normal. ABDOMEN: Shows ascites to be present. EXTREMITIES: There is minimal pedal edema. NEUROLOGIC: The patient is otherwise alert and oriented. LABORATORY DATA: The patient's INR is about 1.15. Hemoglobin is reasonably stable. ASSESSMENT: 1. Upper gastrointestinal bleed, very likely from the biopsy site at the distal esophagus, possible associated Nichelle-Hearn tear. 2. Gastritis. 3. Incidental grade 1 esophageal varix, which has less likelihood of bleeding, [id number] left colon diverticular disease, minor internal hemorrhoids. No colon polyps. PLAN: Plan is to continue the present treatment and care and to keep the patient n.p.o. and to do an EGD in the a.m. for further assessment. Labs will also be checked. The patient once stabilized, down the road may require referral to a tertiary care center for evaluation for possible liver transplant, although the patient could possibly not be a candidate at this point in time. JOB# [id number] CHERI/CHENCHO
--- NOTE | 2018-09-02 03:30 | History and Physical Report ---
History of Present Illness Date of examination: 09/01/18 Date of admission: 09/01/18 16:05 Chief complaint: Vomiting BLOOD since AM History of present illness: 58-year-old male presents to the emergency department from home with complaint of feeling dizzy all morning. When the patient got to the emergency department, he had a large volume of hematemesis with dark clots. The patient is awake and denies any significant abdominal or chest pain. The patient had a colonoscopy and EGD done here [address] Esposito that showed gastritis, esophagitis and grade 1 esophageal varices. The patient has a history of liver cirrhosis and ascites secondary to previous alcohol abuse. Past Medical History Previous Medical History?: Yes Hypertension: Yes Additional medical history: concussion, cirrhosis of liver Surgical History Hx Pacemaker: No Hx Internal Defibrillator: No Social History Smoking Status: Never Smoker Substance Use Type: Alcohol Family History Htn Medications Home Medications: Home Medications Medication Instructions Recorded Confirmed Last Taken Type Cyclobenzaprine [Flexeril 10 MG 10 mg PO BID PRN #20 tablet 07/17/18 08/30/18 08/28/18 Rx TAB] Folic Acid [Folvite] 1 mg PO QDAY #30 tablet 07/25/18 08/30/18 08/28/18 Rx Magnesium Oxide [Mag-Ox] 400 mg PO QDAY #30 tablet 07/25/18 08/30/18 08/28/18 Rx Multivitamin Tab [Multiple Vitamin 1 each PO QDAY #30 tablet 07/25/18 08/30/18 08/28/18 Rx TAB (Theragran)] Potassium Chloride [K-Dur] 40 meq PO BID 30 Days tablet 07/25/18 08/30/18 08/28/18 Rx Thiamine [Vitamin B-1] 100 mg PO QDAY #30 tablet 07/25/18 08/30/18 08/28/18 Rx Naproxen 500 mg PO BID PRN 08/30/18 08/30/18 Unknown History Omeprazole/Sodium Bicarbonate 1 each PO ONCE 30 Days #30 capsule 08/30/18 Unknown Rx [Omeprazole-Bicarb 20-1,100 Cap] Review of Systems ROS: Stated complaint: DIZZINESS Other details as noted in HPI Comment: All other systems reviewed and negative Constitutional: denies: chills, fever Eyes: denies: eye pain, vision change ENT: denies: ear pain, throat pain Respiratory: denies: cough, shortness of breath Cardiovascular: denies: chest pain, palpitations Gastrointestinal: vomiting, hematemesis Genitourinary: denies: dysuria, discharge Musculoskeletal: denies: back pain, arthralgia Skin: denies: rash, lesions Neurological: other (dizziness). denies: headache Medications and Allergies Allergies Allergy/AdvReac Type Severity Reaction Status Date / Time No Known Allergies Allergy Verified 11/05/16 07:55 Home Medications Medication Instructions Recorded Confirmed Last Taken Type Cyclobenzaprine [Flexeril 10 MG 10 mg PO BID PRN #20 tablet 07/17/18 08/30/18 08/28/18 Rx TAB] Folic Acid [Folvite] 1 mg PO QDAY #30 tablet 07/25/18 08/30/18 08/28/18 Rx Magnesium Oxide [Mag-Ox] 400 mg PO QDAY #30 tablet 07/25/18 08/30/18 08/28/18 Rx Multivitamin Tab [Multiple Vitamin 1 each PO QDAY #30 tablet 07/25/18 08/30/18 08/28/18 Rx TAB (Theragran)] Potassium Chloride [K-Dur] 40 meq PO BID 30 Days tablet 07/25/18 08/30/18 08/28/18 Rx Thiamine [Vitamin B-1] 100 mg PO QDAY #30 tablet 07/25/18 08/30/18 08/28/18 Rx Naproxen 500 mg PO BID PRN 08/30/18 08/30/18 Unknown History Omeprazole/Sodium Bicarbonate 1 each PO ONCE 30 Days #30 capsule 08/30/18 Unknown Rx [Omeprazole-Bicarb 20-1,100 Cap] Active Meds: Active Medications Octreotide Acetate 500 mcg/ (Sodium Chloride) 101 mls @ 5.05 mls/hr IV TITR NITA; Protocol Last Admin: 09/01/18 20:47 Dose: 25 mcg/hr, 5.05 mls/hr Documented by: Pantoprazole Sodium 80 mg/ (Sodium Chloride) 100 mls @ 10 mls/hr IV DIRECT NITA Last Admin: 09/01/18 19:00 Dose: 8 mg/hr, 10 mls/hr Documented by: Exam - Constitutional Vitals: Temp Pulse Resp BP Pulse Ox 97.2 F L 93 H 15 118/63 100 02/17/19 23:00 09/02/18 01:00 09/02/18 01:00 09/02/18 01:00 09/02/18 01:00 General appearance: Present: no acute distress, well-nourished - EENT Eyes: Present: PERRL ENT: hearing intact, clear oral mucosa - Neck Neck: Present: supple, normal ROM - Respiratory Respiratory effort: normal Respiratory: bilateral: CTA - Cardiovascular Heart rate: 88 Rhythm: regular Heart Sounds: Present: S1 & S2. Absent: rub, click - Extremities Extremities: no ischemia, pulses intact, pulses symmetrical, No edema Peripheral Pulses: within normal limits - Abdominal General gastrointestinal: Present: soft, non-tender, non-distended, normal bowel sounds Male genitourinary: Present: normal - Rectal Rectal Exam: other (OB positive) - Integumentary Integumentary: Present: clear, warm, dry - Musculoskeletal Musculoskeletal: gait normal, strength equal bilaterally - Psychiatric Psychiatric: appropriate mood/affect, intact judgment & insight - Neurologic Neurologic: CNII-XII intact, moves all extremities - Allied Health Allied health notes reviewed: nursing, case management Results - Labs CBC & Chem 7: 09/01/18 14:30 09/01/18 14:30 Labs: Laboratory Last Values WBC 8.1 K/mm3 (4.5-11.0) 09/01/18 14:30 RBC 2.88 M/mm3 (3.65-5.03) L 09/01/18 14:30 Hgb 9.5 gm/dl (11.8-15.2) L 09/01/18 14:30 Hct 27.7 % (35.5-45.6) L 09/01/18 14:30 MCV 96 fl (84-94) H 09/01/18 14:30 MCH 33 pg (28-32) H 09/01/18 14:30 MCHC 34 % (32-34) 09/01/18 14:30 RDW 13.7 % (13.2-15.2) 09/01/18 14:30 Plt Count 143 K/mm3 (140-440) 09/01/18 14:30 Lymph % (Auto) 16.6 % (13.4-35.0) 09/01/18 14:30 [place] % (Auto) 6.5 % (0.0-7.3) 09/01/18 14:30 Eos % (Auto) 0.0 % (0.0-4.3) 09/01/18 14:30 Baso % (Auto) 1.1 % (0.0-1.8) 09/01/18 14:30 Lymph # 1.4 K/mm3 (1.2-5.4) 09/01/18 14:30 [place] # 0.5 K/mm3 (0.0-0.8) 09/01/18 14:30 Eos # 0.0 K/mm3 (0.0-0.4) 09/01/18 14:30 Baso # 0.1 K/mm3 (0.0-0.1) 09/01/18 14:30 Seg Neutrophils % 75.8 % (40.0-70.0) H 09/01/18 14:30 Seg Neutrophils # 6.2 K/mm3 (1.8-7.7) 09/01/18 14:30 PT 19.6 Sec. (12.2-14.9) H 09/01/18 14:30 INR 1.55 (0.87-1.13) H 09/01/18 14:30 APTT 33.6 Sec. (24.2-36.6) 09/01/18 14:30 Sodium 145 mmol/L (137-145) 09/01/18 14:30 Potassium 3.7 mmol/L (3.6-5.0) 09/01/18 14:30 Chloride 107.2 mmol/L (98-107) H 09/01/18 14:30 Carbon Dioxide 24 mmol/L (22-30) 09/01/18 14:30 Anion Gap 18 mmol/L 09/01/18 14:30 BUN 27 mg/dL (9-20) H 09/01/18 14:30 Creatinine 0.5 mg/dL (0.8-1.5) L 09/01/18 14:30 Estimated GFR > 60 ml/min 09/01/18 14:30 BUN/Creatinine Ratio 54 % 09/01/18 14:30 Glucose 113 mg/dL (75-100) H 09/01/18 14:30 Lactic Acid 2.60 mmol/L (0.7-2.0) H* 09/01/18 16:45 Calcium 9.0 mg/dL (8.4-10.2) 09/01/18 14:30 Total Bilirubin 4.90 mg/dL (0.1-1.2) H 09/01/18 14:30 AST 155 units/L (5-40) H 09/01/18 14:30 ALT 73 units/L (7-56) H 09/01/18 14:30 Alkaline Phosphatase 130 units/L (35-129) H 09/01/18 14:30 Total Protein 6.7 g/dL (6.3-8.2) 09/01/18 14:30 Albumin 2.4 g/dL (3.9-5) L 09/01/18 14:30 Albumin/Globulin Ratio 0.6 % 09/01/18 14:30 Blood Type O POSITIVE 09/01/18 14:30 Antibody Screen Negative 09/01/18 14:30 - Imaging and Cardiology EKG: report reviewed Assessment and Plan Advance Directives: Yes (Full code) VTE prophylaxis?: Mechanical Plan of care discussed with patient/family: Yes - Patient Problems (1) Upper GI bleed Current Visit: Yes Status: Acute Plan to address problem: Has Esophageal varices Recent Endoscopy by Dr Mai GI consult reqiested Check H/H q 8 h (2) GERD (gastroesophageal reflux disease) Current Visit: Yes Status: Acute Qualifiers: Esophagitis presence: with esophagitis Qualified Code(s): K21.0 - Gastro- esophageal reflux disease with esophagitis Plan to address problem: On PPI's (3) Elevated lactic acid level Current Visit: Yes Status: Acute Plan to address problem: No source of infection (4) Transaminitis Current Visit: Yes Status: Acute Plan to address problem: Sec to alcohol (5) Malnutrition Current Visit: Yes Status: Chronic Qualifiers: Malnutrition type: protein-calorie malnutrition Protein-calorie malnutrition severity: moderate Qualified Code(s): E44.0 - Moderate protein-calorie malnutrition Plan to address problem: Dietitian consult (6) DVT prophylaxis Current Visit: Yes Status: Acute Plan to address problem: On SCD's ans GI prophylaxis
[2018-09-02] MEDS ORDERED: TYLENOL PO PRN (03:39)
[2018-09-02] MEDS ORDERED: SODIUM CHLORIDE FLUSH SYRINGE 10 ML IV PRN (03:39)
[2018-09-02] MEDS ORDERED: ZOFRAN IV PRN (03:39)
[2018-09-02] MEDS ORDERED: NACL 0.9% 1000 ML 1,000 ML IV SCH ×2 (04:00→09:00)
[2018-09-02 06:26] LABS: Hematocrit 21.8 % (35.5-45.6); Hemoglobin 7.6 gm/dl (11.8-15.2)
[2018-09-02] MEDS ORDERED: DIPRIVAN 10 MG/ML IV ONE ×3 (07:33→09:10)
[2018-09-02] MEDS ORDERED: WATER FOR IRRIG STERILE IR ONE (08:45)
--- NOTE | 2018-09-02 08:59 | Procedure Note ---
Date of procedure: 09/02/18 Pre-op diagnosis: Upper GI Bleeding Post-op diagnosis: other (No active Upper GI Bleeding noted/ Incidental Grade 1 Esophageal Varices (no stigmata of bleeding)/ Mild to Moderate Distal Erosive Esophagitis (possible bleeding from the previous biopsy site)/ Gastritis (biopsy site may also have contributed to the bleeding)/ No evidence of any active GI Bleeding at present) Procedure: EGD Anesthesia: MAC Surgeon: GERMAIN RICH Pathology: none Condition: stable Disposition: same day (Place patient on a clear liquid diet and advance diet as tolerated. Patient may be discharged from a GI standpoint. Avoid aspirin and NSAID for 5 days and have patietn follow up as an Outpatient ([phone]).)
--- NOTE | 2018-09-02 09:35 | Operative Report ---
PROCEDURE: Esophagogastroduodenoscopy. INDICATIONS: This is a 58-year-old white male with an underlying history of cirrhosis and portal hypertension. He had an EGD and a colonoscopy done on 08/30/2018, and the colonoscopy was essentially unremarkable other than for the presence of some diverticular disease. No biopsies were done from the colon. The EGD did show an incidental grade 1 esophageal varix and some erosive esophagitis for which biopsy was done to rule out for Nichols's as well as gastritis. Biopsy was also done from the gastric antrum and the gastric body. The patient presented to the hospital yesterday to the ER and had a bout of hematemesis and was admitted for further observation. EGD was done to make sure that there was not any active source of bleeding. DESCRIPTION OF PROCEDURE: Procedure was done after getting informed consent with MAC anesthesia. Instrument was passed through the hypopharynx into the esophagus, which did not show any evidence of active bleeding. There was incidental grade 1 esophageal varix as before. There was no stigmata of bleeding there. It is possible that the bleeding may have been from the biopsy site in the distal esophagus, where biopsy was done for erosive esophagitis. There was also some evidence of biopsy sites in the stomach. There was no blood in the stomach either in the straight or the retroverted view. Again, it is possible that the bleeding may have been from the biopsy sites, but it appears to be healing at present. The pylorus was patent. The duodenum in the first and the second portions appeared normal. There were no complications associated with the procedure. No bleeding associated with the procedure. ASSESSMENT: Upper gastrointestinal bleeding, no evidence of any active upper gastrointestinal bleeding at present. Incidental grade 1 esophageal varix without any stigmata of bleeding. Distal erosive esophagitis from which biopsy was done, which may have been the source of the bleeding as well as gastritis from which biopsy was done from the stomach, which may also have contributed to the bleeding, but no bleeding at present. A patent pylorus. No peptic ulcer disease noted. Plan is to continue treatment of the patient with PPI. The patient may be discharged from a GI standpoint. If the patient does well, advance diet as tolerated and have the patient follow up in the office in 1-2 weeks' time. The patient should be advised to refrain from using any aspirin or aspirin-related products for the next several days. RN, Chuyita Michael was in the room throughout the entirety of the procedure. JOB# [id number] CHERI/NTS
--- NOTE | 2018-09-02 11:45 | Anesthesia Consultation ---
Anesthesia Consult and Med Hx Date of service: 09/02/18 - Airway ROM Head & Neck: Adequate Mental/Hyoid Distance: Adequate Intubation Access Assessment: Probably Good - Pulmonary Exam CTA: Yes - Cardiac Exam Cardiac Exam: RRR - Pre-Operative Health Status ASA Pre-Surgery Classification: ASA3 Proposed Anesthetic Plan: MAC - Pulmonary Hx Asthma: No COPD: No Hx Pneumonia: No - Cardiovascular System Hx Hypertension: Yes Hx Pacemaker: No Hx Internal Defibrillator: No - Central Nervous System Hx Psychiatric Problems: No - Endocrine Hx End Stage Renal Disease: No Hx Cirrhosis: Yes (jaundice; distended abdomen; esophageal varices) - Hematic Hx Anemia: Yes - Other Systems Hx Alcohol Use: Yes (quit june)
--- NOTE | 2018-09-02 11:46 | Post Anesthesia Evaluation ---
- Post Anesthesia Evaluation Patient Participated: Yes Airway Patent: Yes Stable Respiratory Function: Yes Temp > 96.8F: Yes Pain Manageable: Yes Adequeate Hydration: Yes Anesthesia Complications: No
--- NOTE | 2018-09-02 11:46 | Anesthesia Day of Surgery ---
Anesthesia Day of Surgery - Day of Surgery Patient Examined: Yes Patient H&P Reviewed: Yes Patient is NPO: Yes
[2018-09-02] MEDS ORDERED: NACL 0.9% 1000 ML 1,000 ML ONE (11:54)
[2018-09-02] MEDS: PROTONIX PO SCH ×2 (13:38→22:18)
[2018-09-02] MEDS: SODIUM CHLORIDE FLUSH SYRINGE 10 ML IV SCH ×2 (13:38→22:18)
[2018-09-02 14:07] LABS: Hematocrit 21.4 % (35.5-45.6); Hemoglobin 7.4 gm/dl (11.8-15.2)
[2018-09-02 15:26] LABS: Hemoglobin 7.5 gm/dl (11.8-15.2)
--- NOTE | 2018-09-02 16:50 | Progress Note ---
Assessment and Plan Assessment and plan: Upper GI bleed - Dr. Mai was consulted and did EGD and has bleeding from the recent biopsy site, no varices - DC octreotide, change PPI drip to by mouth Anemia - Due to the above - Hemoglobin this morning is 7.6, will monitor, transfuse if it is less than 7 Left acidosis - Likely due to GI bleed and low BP - Continue IV fluid, patient has no signs of infection, no antibiotics needed DVT prophylaxis - SCD Disposition - Possible discharge tomorrow. History Interval history: Patient was seen and evaluated this morning, EGD was done earlier this morning and showed bleeding from the site of biopsy. No hematemesis this morning. Hospitalist Physical - Physical exam Narrative exam: Not in cardiopulmonary distress. The patient appeared well nourished and normally developed. Vital signs as documented. Head exam is unremarkable. No scleral icterus . Neck is without jugular venous distension, thyromegaly, or carotid bruits. Lungs are clear to auscultation. Cardiac exam reveals regular rate and Rhythm. Abdominal exam reveals normal bowel sounds. Extremities are nonedematous and both femoral and pedal pulses are normal. HOME CARE MANAGER RN: Alert and oriented 3. No focal weakness. - Constitutional Vitals: Temp Pulse Resp BP Pulse Ox 98.4 F 79 11 L 129/78 100 09/02/18 08:56 09/02/18 15:51 09/02/18 15:51 09/02/18 15:51 09/02/18 15:51 General appearance: Present: no acute distress, well-nourished Results - Labs CBC & Chem 7: 09/02/18 14:53 09/01/18 14:30 Labs: Laboratory Last Values WBC 8.1 K/mm3 (4.5-11.0) 09/01/18 14:30 RBC 2.88 M/mm3 (3.65-5.03) L 09/01/18 14:30 Hgb 7.5 gm/dl (11.8-15.2) L 09/02/18 14:53 Hct 22.0 % (35.5-45.6) L 09/02/18 14:53 MCV 96 fl (84-94) H 09/01/18 14:30 MCH 33 pg (28-32) H 09/01/18 14:30 MCHC 34 % (32-34) 09/01/18 14:30 RDW 13.7 % (13.2-15.2) 09/01/18 14:30 Plt Count 143 K/mm3 (140-440) 09/01/18 14:30 Lymph % (Auto) 16.6 % (13.4-35.0) 09/01/18 14:30 [place] % (Auto) 6.5 % (0.0-7.3) 09/01/18 14:30 Eos % (Auto) 0.0 % (0.0-4.3) 09/01/18 14:30 Baso % (Auto) 1.1 % (0.0-1.8) 09/01/18 14:30 Lymph # 1.4 K/mm3 (1.2-5.4) 09/01/18 14:30 [place] # 0.5 K/mm3 (0.0-0.8) 09/01/18 14:30 Eos # 0.0 K/mm3 (0.0-0.4) 09/01/18 14:30 Baso # 0.1 K/mm3 (0.0-0.1) 09/01/18 14:30 Seg Neutrophils % 75.8 % (40.0-70.0) H 09/01/18 14:30 Seg Neutrophils # 6.2 K/mm3 (1.8-7.7) 09/01/18 14:30 PT 19.6 Sec. (12.2-14.9) H 09/01/18 14:30 INR 1.55 (0.87-1.13) H 09/01/18 14:30 APTT 33.6 Sec. (24.2-36.6) 09/01/18 14:30 Sodium 145 mmol/L (137-145) 09/01/18 14:30 Potassium 3.7 mmol/L (3.6-5.0) 09/01/18 14:30 Chloride 107.2 mmol/L (98-107) H 09/01/18 14:30 Carbon Dioxide 24 mmol/L (22-30) 09/01/18 14:30 Anion Gap 18 mmol/L 09/01/18 14:30 BUN 27 mg/dL (9-20) H 09/01/18 14:30 Creatinine 0.5 mg/dL (0.8-1.5) L 09/01/18 14:30 Estimated GFR > 60 ml/min 09/01/18 14:30 BUN/Creatinine Ratio 54 % 09/01/18 14:30 Glucose 113 mg/dL (75-100) H 09/01/18 14:30 Lactic Acid 3.70 mmol/L (0.7-2.0) H* 09/02/18 13:55 Calcium 9.0 mg/dL (8.4-10.2) 09/01/18 14:30 Total Bilirubin 4.90 mg/dL (0.1-1.2) H 09/01/18 14:30 AST 155 units/L (5-40) H 09/01/18 14:30 ALT 73 units/L (7-56) H 09/01/18 14:30 Alkaline Phosphatase 130 units/L (35-129) H 09/01/18 14:30 Total Protein 6.7 g/dL (6.3-8.2) 09/01/18 14:30 Albumin 2.4 g/dL (3.9-5) L 09/01/18 14:30 Albumin/Globulin Ratio 0.6 % 09/01/18 14:30 Blood Type O POSITIVE 09/01/18 14:30 Antibody Screen Negative 09/01/18 14:30
[2018-09-02 21:08] LABS: Hematocrit 20.7 % (35.5-45.6); Hemoglobin 7.3 gm/dl (11.8-15.2)
[2018-09-03 06:33] LABS: Hematocrit 20.1 % (35.5-45.6); Hemoglobin 6.5 gm/dl (11.8-15.2)
--- NOTE | 2018-09-03 08:23 | XRay Report ---
FINAL REPORT EXAM: XR ABD SERIES W CXR 1V HISTORY: abd pain, Hematemesis TECHNIQUE: PA view of the chest and supine and erect views of the abdomen PRIORS: None. FINDINGS: Chest: Faint mild interstitial markings in the left base are noted. Otherwise, the lungs are clear. T rachea is midline. Cardiac and mediastinal silhouettes are unremarkable. Bony structures are intact. Abdomen: The bowel gas pattern is nonspecific. No free air is identified. Soft tissues have no evide nce for mass shadows or calcifications. The bony structures are intact. There is a large osteophytic bridging spur on the left side of L2-L3. IMPRESSION: 1. No acute cardiopulmonary process seen. Interstitial markings in left base may be chronic. 2. Nonspecific, nonobstructive bowel gas pattern with no acute process noted.
[2018-09-03] MEDS ORDERED: NACL 0.9% 500 ML 500 ML IV NR (08:40)
--- NOTE | 2018-09-03 09:05 | Progress Note ---
Subjective Date of service: 09/03/18 Principal diagnosis: Upper GI Bleeding/ Cirrhosis Interval history: Patient is more alert and oriented today. No further GI bleedingand appears to be clinically stable O/E Lungs-clear Abdomen- Ascites/ H/O Portal Hypertensiion CVS- normal exam A/P Upper GI Bleeding secondary to biopsy site from erosive esophagitis and gastritis: Continue with present treatment from a GI standpoint. Ok to discharge Incidental Grade 1 Esophageal Varices patient once patient is clinically stable medically. Cirrhosis and Portal Hypertension Objective - Constitutional Vitals: Vital Signs - 12hr 09/02/18 09/02/18 09/02/18 21:11 21:21 21:31 Pulse Rate 70 73 Pulse Rate [ From Monitor] Respiratory 14 18 Rate Blood Pressure 131/81 131/81 131/81 O2 Sat by Pulse 100 99 100 Oximetry 09/02/18 09/02/18 09/02/18 21:41 21:51 22:00 Pulse Rate 74 Pulse Rate [ From Monitor] Respiratory Rate Blood Pressure 131/81 131/81 124/76 O2 Sat by Pulse 100 100 100 Oximetry 09/02/18 09/02/18 09/02/18 22:11 22:21 22:31 Pulse Rate 81 77 Pulse Rate [ From Monitor] Respiratory 13 14 Rate Blood Pressure 131/81 113/69 113/69 O2 Sat by Pulse 100 100 100 Oximetry 09/02/18 09/02/18 09/02/18 22:41 22:51 23:00 Pulse Rate 85 87 89 Pulse Rate [ From Monitor] Respiratory 14 13 15 Rate Blood Pressure 113/69 113/69 127/69 O2 Sat by Pulse 100 100 100 Oximetry 09/02/18 09/02/18 09/02/18 23:11 23:21 23:31 Pulse Rate 88 86 88 Pulse Rate [ From Monitor] Respiratory 13 15 15 Rate Blood Pressure 127/69 127/69 127/69 O2 Sat by Pulse 100 99 100 Oximetry 09/02/18 09/02/18 09/03/18 23:41 23:51 00:00 Pulse Rate 83 97 H 94 H Pulse Rate [ 83 From Monitor] Respiratory 21 19 16 Rate Blood Pressure 127/69 127/69 115/73 O2 Sat by Pulse 100 100 100 Oximetry 09/03/18 09/03/18 09/03/18 00:11 00:21 00:31 Pulse Rate 80 81 88 Pulse Rate [ From Monitor] Respiratory 20 12 18 Rate Blood Pressure 115/73 115/73 115/73 O2 Sat by Pulse 100 100 100 Oximetry 09/03/18 09/03/18 09/03/18 00:41 00:51 01:00 Pulse Rate 84 88 89 Pulse Rate [ From Monitor] Respiratory 15 14 17 Rate Blood Pressure 115/73 115/73 115/73 O2 Sat by Pulse 100 100 100 Oximetry 09/03/18 09/03/18 09/03/18 01:11 01:21 01:31 Pulse Rate 88 88 85 Pulse Rate [ From Monitor] Respiratory 18 15 16 Rate Blood Pressure 115/73 115/73 115/73 O2 Sat by Pulse 100 100 98 Oximetry 09/03/18 09/03/18 09/03/18 01:41 01:51 02:00 Pulse Rate 86 87 87 Pulse Rate [ From Monitor] Respiratory 16 18 17 Rate Blood Pressure 116/59 116/59 109/65 O2 Sat by Pulse 99 100 99 Oximetry 09/03/18 09/03/18 09/03/18 02:11 02:21 02:31 Pulse Rate 80 86 82 Pulse Rate [ From Monitor] Respiratory 17 16 16 Rate Blood Pressure 109/65 109/65 109/65 O2 Sat by Pulse 100 100 100 Oximetry 09/03/18 09/03/18 09/03/18 02:41 02:51 03:00 Pulse Rate 77 74 76 Pulse Rate [ From Monitor] Respiratory 14 17 18 Rate Blood Pressure 109/65 109/65 110/74 O2 Sat by Pulse 100 100 100 Oximetry 09/03/18 09/03/18 09/03/18 03:11 03:21 03:31 Pulse Rate 85 78 81 Pulse Rate [ From Monitor] Respiratory 16 17 18 Rate Blood Pressure 110/74 110/74 110/74 O2 Sat by Pulse 100 100 100 Oximetry 09/03/18 09/03/18 09/03/18 03:41 03:51 04:00 Pulse Rate 79 83 77 Pulse Rate [ 77 From Monitor] Respiratory 20 17 17 Rate Blood Pressure 110/74 110/74 110/74 O2 Sat by Pulse 99 100 99 Oximetry 09/03/18 09/03/18 09/03/18 04:11 04:21 04:31 Pulse Rate 85 82 74 Pulse Rate [ From Monitor] Respiratory 18 16 15 Rate Blood Pressure 98/45 110/74 110/74 O2 Sat by Pulse 98 99 100 Oximetry 09/03/18 09/03/18 09/03/18 04:41 04:51 05:00 Pulse Rate 75 75 80 Pulse Rate [ From Monitor] Respiratory 16 18 15 Rate Blood Pressure 110/74 98/45 102/64 O2 Sat by Pulse 100 100 100 Oximetry 09/03/18 09/03/18 09/03/18 05:11 05:21 05:31 Pulse Rate 80 66 63 Pulse Rate [ From Monitor] Respiratory 19 20 18 Rate Blood Pressure 102/64 102/64 102/64 O2 Sat by Pulse 100 100 100 Oximetry 09/03/18 09/03/18 09/03/18 05:41 05:51 06:00 Pulse Rate 76 85 80 Pulse Rate [ From Monitor] Respiratory 14 21 11 L Rate Blood Pressure 102/64 102/64 106/63 O2 Sat by Pulse 100 100 100 Oximetry 09/03/18 09/03/18 09/03/18 06:11 06:21 06:31 Pulse Rate 80 81 81 Pulse Rate [ From Monitor] Respiratory 16 16 15 Rate Blood Pressure 106/63 106/63 106/63 O2 Sat by Pulse 99 99 99 Oximetry 09/03/18 09/03/18 09/03/18 06:41 06:51 07:00 Pulse Rate 77 80 73 Pulse Rate [ From Monitor] Respiratory 16 16 15 Rate Blood Pressure 106/63 106/63 101/57 O2 Sat by Pulse 99 100 99 Oximetry 09/03/18 07:11 Pulse Rate 80 Pulse Rate [ From Monitor] Respiratory 17 Rate Blood Pressure 101/57 O2 Sat by Pulse 100 Oximetry - Labs CBC & Chem 7: 09/03/18 05:41 09/01/18 14:30 Labs: Abnormal lab results 09/01/18 09/02/18 09/02/18 Range/Units 14:30 13:55 13:55 Hgb 7.4 L (11.8-15.2) gm/dl Hct 21.4 L (35.5-45.6) % Lactic Acid 3.70 H* (0.7-2.0) mmol/L Crossmatch See Detail 09/02/18 09/02/18 09/03/18 Range/Units 14:53 20:37 05:41 Hgb 7.5 L 7.3 L 6.5 L (11.8-15.2) gm/dl Hct 22.0 L 20.7 L 20.1 L (35.5-45.6) % Lactic Acid (0.7-2.0) mmol/L Crossmatch Medications & Allergies - Medications Allergies/Adverse Reactions: Allergies No Known Allergies Allergy (Verified 11/05/16 07:55) Home Medications: Home Medications Medication Instructions Recorded Confirmed Last Taken Type Cyclobenzaprine [Flexeril 10 MG 10 mg PO BID PRN #20 tablet 07/17/18 08/30/18 08/28/18 Rx TAB] Folic Acid [Folvite] 1 mg PO QDAY #30 tablet 07/25/18 08/30/18 08/28/18 Rx Magnesium Oxide [Mag-Ox] 400 mg PO QDAY #30 tablet 07/25/18 08/30/18 08/28/18 Rx Multivitamin Tab [Multiple Vitamin 1 each PO QDAY #30 tablet 07/25/18 08/30/18 08/28/18 Rx TAB (Theragran)] Potassium Chloride [K-Dur] 40 meq PO BID 30 Days tablet 07/25/18 08/30/18 08/28/18 Rx Thiamine [Vitamin B-1] 100 mg PO QDAY #30 tablet 07/25/18 08/30/18 08/28/18 Rx Naproxen 500 mg PO BID PRN 08/30/18 08/30/18 Unknown History Omeprazole/Sodium Bicarbonate 1 each PO ONCE 30 Days #30 capsule 08/30/18 Unknown Rx [Omeprazole-Bicarb 20-1,100 Cap] Active Medications: Generic Name Dose Route Start Last Admin Trade Name Antonella PRN Reason Stop Dose Admin Sodium Chloride 1,000 mls @ 50 mls/hr 09/02/18 09:00 09/02/18 13:39 Nacl 0.9% 1000 Ml IV 50 mls/hr DIRECT NITA Administration Sodium Chloride 500 mls @ 0 mls/hr 09/03/18 08:40 Nacl 0.9% 500 Ml IV 09/03/18 12:00 ONCE NR As Directed Ondansetron HCl 4 mg 09/02/18 03:39 Zofran IV Q8H PRN Nausea And Vomiting Pantoprazole Sodium 40 mg 09/02/18 11:00 09/02/18 22:18 Protonix PO 40 mg BID NITA Administration Sodium Chloride 10 ml 09/02/18 10:00 09/02/18 22:18 Sodium Chloride Flush Syringe 10 Ml IV 10 ml BID NITA Administration Sodium Chloride 10 ml 09/02/18 03:39 Sodium Chloride Flush Syringe 10 Ml IV PRN PRN LINE FLUSH
[2018-09-03] MEDS: PROTONIX PO SCH ×2 (10:08→21:23)
[2018-09-03] MEDS: SODIUM CHLORIDE FLUSH SYRINGE 10 ML IV SCH ×2 (10:08→21:24)
[2018-09-03] MEDS ORDERED: PERCOCET 5/325 PO PRN (21:09)
[2018-09-04 06:07] LABS: Hematocrit 20.4 % (35.5-45.6); Hemoglobin 6.9 gm/dl (11.8-15.2); Mean Corpuscular HGB Conc 34 % (32-34); Mean Corpuscular Volume 94 fl (84-94); Red Blood Count 2.18 M/mm3 (3.65-5.03); Red Cell Distribution Width 15.7 % (13.2-15.2)
[2018-09-04 06:08] LABS: Platelet Count 96 K/mm3 (140-440)
--- NOTE | 2018-09-04 09:06 | Progress Note ---
Subjective Date of service: 09/04/18 Principal diagnosis: Upper GI Bleeding/ Cirrhosis Interval history: Patient is more alert and oriented today. No further GI bleeding and appears to be clinically stable. Patient received 0ne Unit of PRBC with minimal improvement of his Hemoglobin. U/S confirms presence of a cirrhotic liver with some enlargement (possibly secondary to associated fatty infiltration), but no obvious presence of hepatoma. U/S also shows presence of ascites and incidental gallstones and a minimally enlarged spleen. O/E Lungs-clear Abdomen- Ascites/ H/O Portal Hypertensiion CVS- normal exam A/P Upper GI Bleeding secondary to biopsy site from erosive esophagitis and gastritis: Continue with present treatment from a GI standpoint. Ok to discharge Incidental Grade 1 Esophageal Varices patient once patient is clinically stable medically. Cirrhosis and Portal Hypertension Incidental Gallstones and minimally enalrged Spleen Objective - Constitutional Vitals: Vital Signs - 12hr 09/03/18 09/03/18 09/04/18 23:30 23:31 06:01 Temperature 98.3 F 98.4 F Pulse Rate 91 H 86 80 Respiratory 18 18 Rate Blood Pressure 89/48 126/65 O2 Sat by Pulse 98 98 99 Oximetry - Labs CBC & Chem 7: 09/04/18 05:38 09/01/18 14:30 Labs: Abnormal lab results 09/01/18 09/04/18 Range/Units 14:30 05:38 RBC 2.18 L (3.65-5.03) M/mm3 Hgb 6.9 L (11.8-15.2) gm/dl Hct 20.4 L (35.5-45.6) % RDW 15.7 H (13.2-15.2) % Plt Count 96 L (140-440) K/mm3 Crossmatch See Detail Medications & Allergies - Medications Allergies/Adverse Reactions: Allergies No Known Allergies Allergy (Verified 11/05/16 07:55) Home Medications: Home Medications Medication Instructions Recorded Confirmed Last Taken Type Cyclobenzaprine [Flexeril 10 MG 10 mg PO BID PRN #20 tablet 07/17/18 09/03/18 08/28/18 Rx TAB] Folic Acid [Folvite] 1 mg PO QDAY #30 tablet 07/25/18 09/03/18 08/28/18 Rx Magnesium Oxide [Mag-Ox] 400 mg PO QDAY #30 tablet 07/25/18 09/03/18 08/28/18 Rx Multivitamin Tab [Multiple Vitamin 1 each PO QDAY #30 tablet 07/25/18 09/03/18 08/28/18 Rx TAB (Theragran)] Potassium Chloride [K-Dur] 40 meq PO BID 30 Days tablet 07/25/18 09/03/18 08/28/18 Rx Thiamine [Vitamin B-1] 100 mg PO QDAY #30 tablet 07/25/18 09/03/18 08/28/18 Rx Naproxen 500 mg PO BID PRN 08/30/18 09/03/18 Unknown History Omeprazole/Sodium Bicarbonate 1 each PO ONCE 30 Days #30 capsule 08/30/18 Unknown Rx [Omeprazole-Bicarb 20-1,100 Cap] Active Medications: Generic Name Dose Route Start Last Admin Trade Name Freq PRN Reason Stop Dose Admin Sodium Chloride 1,000 mls @ 50 mls/hr 09/02/18 09:00 09/02/18 13:39 Nacl 0.9% 1000 Ml IV 50 mls/hr DIRECT NITA Administration Ondansetron HCl 4 mg 09/02/18 03:39 Zofran IV Q8H PRN Nausea And Vomiting Oxycodone/Acetaminophen 1 tab 09/03/18 21:09 09/03/18 21:23 Percocet 5/325 PO 1 tab Q4H PRN Administration Pain, Moderate (4-6) Pantoprazole Sodium 40 mg 09/02/18 11:00 09/03/18 21:23 Protonix PO 40 mg BID NITA Administration Sodium Chloride 10 ml 09/02/18 10:00 09/03/18 21:24 Sodium Chloride Flush Syringe 10 Ml IV 10 ml BID NITA Administration Sodium Chloride 10 ml 09/02/18 03:39 Sodium Chloride Flush Syringe 10 Ml IV PRN PRN LINE FLUSH
[2018-09-04] MEDS: PROTONIX PO SCH (10:25)
[2018-09-04] MEDS: SODIUM CHLORIDE FLUSH SYRINGE 10 ML IV SCH (10:25)
[2018-09-04] MEDS ORDERED: NACL 0.9% 500 ML 500 ML IV NR (10:56)
--- NOTE | 2018-09-04 10:57 | Progress Note ---
Assessment and Plan Assessment and plan: Upper GI bleed - Dr. Mai was consulted and did EGD and has bleeding from the recent biopsy site, no varices - DC octreotide, change PPI drip to by mouth Anemia - Due to the above - Hemoglobin this morning is 6.5 will transfuse Left acidosis - Likely due to GI bleed and low BP - Continue IV fluid, patient has no signs of infection, no antibiotics needed Thrombocytopenia -Outpatient Hematology eval Erectyle dysfunction -outpatient eval recommended. DVT prophylaxis - SCD Disposition - Possible discharge tomorrow. History Interval history: Patient seen and examined in nonacute distress at this time. Hospitalist Physical - Physical exam Narrative exam: VITAL SIGNS: Reviewed. GENERAL: The patient appeared well nourished and normally developed. Vital signs as documented. HEAD: No signs of head trauma. EYES: Pupils are equal. Extraocular motions intact. EARS: Hearing grossly intact. MOUTH: Oropharynx is normal. NECK: No adenopathy, no JVD. CHEST: Chest with clear breath sounds bilaterally. No wheezes, rales, or rhonchi. CARDIAC: Regular rate and rhythm. S1 and S2, without murmurs, gallops, or rubs. VASCULAR: No Edema. Peripheral pulses normal and equal in all extremities. ABDOMEN: Soft, without detectable tenderness. No sign of distention. No rebound or guarding, and no masses palpated. Bowel Sounds normal. MUSCULOSKELETAL: Good range of motion of all major joints. Extremities without clubbing, cyanosis or edema. NEUROLOGIC EXAM: Alert and oriented x 3. No focal sensory or strength deficits. Speech normal. Follows commands. PSYCHIATRIC: Mood normal. SKIN: No rash or lesions. - Constitutional Vitals: Temp Pulse Resp BP Pulse Ox 98.4 F 80 18 126/65 99 09/04/18 06:01 09/04/18 06:01 09/04/18 06:01 09/04/18 06:01 09/04/18 06:01 General appearance: Present: no acute distress, well-nourished Results - Labs CBC & Chem 7: 09/04/18 05:38 09/01/18 14:30 Labs: Laboratory Last Values WBC 4.6 K/mm3 (4.5-11.0) 09/04/18 05:38 RBC 2.18 M/mm3 (3.65-5.03) L 09/04/18 05:38 Hgb 6.9 gm/dl (11.8-15.2) L 09/04/18 05:38 Hct 20.4 % (35.5-45.6) L 09/04/18 05:38 MCV 94 fl (84-94) 09/04/18 05:38 MCH 32 pg (28-32) 09/04/18 05:38 MCHC 34 % (32-34) 09/04/18 05:38 RDW 15.7 % (13.2-15.2) H 09/04/18 05:38 Plt Count 96 K/mm3 (140-440) L 09/04/18 05:38 Lymph % (Auto) 16.6 % (13.4-35.0) 09/01/18 14:30 Morris % (Auto) 6.5 % (0.0-7.3) 09/01/18 14:30 Eos % (Auto) 0.0 % (0.0-4.3) 09/01/18 14:30 Baso % (Auto) 1.1 % (0.0-1.8) 09/01/18 14:30 Lymph # 1.4 K/mm3 (1.2-5.4) 09/01/18 14:30 Morris # 0.5 K/mm3 (0.0-0.8) 09/01/18 14:30 Eos # 0.0 K/mm3 (0.0-0.4) 09/01/18 14:30 Baso # 0.1 K/mm3 (0.0-0.1) 09/01/18 14:30 Seg Neutrophils % 75.8 % (40.0-70.0) H 09/01/18 14:30 Seg Neutrophils # 6.2 K/mm3 (1.8-7.7) 09/01/18 14:30 PT 19.6 Sec. (12.2-14.9) H 09/01/18 14:30 INR 1.55 (0.87-1.13) H 09/01/18 14:30 APTT 33.6 Sec. (24.2-36.6) 09/01/18 14:30 Sodium 145 mmol/L (137-145) 09/01/18 14:30 Potassium 3.7 mmol/L (3.6-5.0) 09/01/18 14:30 Chloride 107.2 mmol/L (98-107) H 09/01/18 14:30 Carbon Dioxide 24 mmol/L (22-30) 09/01/18 14:30 Anion Gap 18 mmol/L 09/01/18 14:30 BUN 27 mg/dL (9-20) H 09/01/18 14:30 Creatinine 0.5 mg/dL (0.8-1.5) L 09/01/18 14:30 Estimated GFR > 60 ml/min 09/01/18 14:30 BUN/Creatinine Ratio 54 % 09/01/18 14:30 Glucose 113 mg/dL (75-100) H 09/01/18 14:30 Lactic Acid 1.30 mmol/L (0.7-2.0) 09/03/18 05:41 Calcium 9.0 mg/dL (8.4-10.2) 09/01/18 14:30 Total Bilirubin 4.90 mg/dL (0.1-1.2) H 09/01/18 14:30 AST 155 units/L (5-40) H 09/01/18 14:30 ALT 73 units/L (7-56) H 09/01/18 14:30 Alkaline Phosphatase 130 units/L (35-129) H 09/01/18 14:30 Total Protein 6.7 g/dL (6.3-8.2) 09/01/18 14:30 Albumin 2.4 g/dL (3.9-5) L 09/01/18 14:30 Albumin/Globulin Ratio 0.6 % 09/01/18 14:30 Blood Type O POSITIVE 09/01/18 14:30 Antibody Screen Negative 09/01/18 14:30 Crossmatch See Detail 09/01/18 14:30
--- NOTE | 2018-09-04 11:01 | Discharge Summary ---
Providers - Providers Date of Admission: 09/01/18 16:05 Attending physician: PRANAV CARMONA MD 09/01/18 15:40 Consult to Physician [CONS] Routine Comment: Dr. Rich notified @ 15:33- L[facility] Consulting Provider: GERMAIN RICH Physician Instructions: Reason For Exam: Upper GI Bleed, hematemsis Primary care physician: ALISA CLARK Hospitalization Reason for admission: CRRIHOSIS Condition: Serious Hospital course: 58-year-old male presents to the emergency department from home with complaint of feeling dizzy all morning. When the patient got to the emergency department, he had a large volume of hematemesis with dark clots. The patient is awake and denies any significant abdominal or chest pain. The patient had a colonoscopy and EGD done here [address] Esposito that showed gastritis, esophagitis and grade 1 esophageal varices. The patient has a history of liver cirrhosis and ascites secondary to previous alcohol abuse. Patient proceeded to have endoscopy and with GI report as noted below. He was transfused 2 units PRBC and discharged to follow with GI and Urology outpatient for reported erectile dysfunction Discharge Diagnosis Upper GI bleed Anemia-Precipitous drop in Anemia Liver Cirrhosis Thrombocytopenia Erectile dysfunction SEVERE PROTEIN MALNUTRITION Disposition: DC-01 TO HOME OR SELFCARE Time spent for discharge: 35 MINS Core Measure Documentation - Palliative Care Palliative Care/ Comfort Measures: Not Applicable - Core Measures Any of the following diagnoses?: none Exam - Physical Exam Narrative exam: VITAL SIGNS: Reviewed. GENERAL: The patient appeared well nourished and normally developed. Vital s igns as documented. HEAD: No signs of head trauma. EYES: Pupils are equal. Extraocular motions intact. EARS: Hearing grossly intact. MOUTH: Oropharynx is normal. NECK: No adenopathy, no JVD. CHEST: Chest with clear breath sounds bilaterally. No wheezes, rales, or rhonchi. CARDIAC: Regular rate and rhythm. S1 and S2, without murmurs, gallops, or rubs. VASCULAR: No Edema. Peripheral pulses normal and equal in all extremities. ABDOMEN: Soft, without detectable tenderness. No sign of distention. No rebound or guarding, and no masses palpated. Bowel Sounds normal. MUSCULOSKELETAL: Good range of motion of all major joints. Extremities without clubbing, cyanosis or edema. NEUROLOGIC EXAM: Alert and oriented x 3. No focal sensory or strength deficits. Speech normal. Follows commands. PSYCHIATRIC: Mood normal. SKIN: No rash or lesions. - Constitutional Vitals: Temp Pulse Resp BP Pulse Ox 98.4 F 80 18 126/65 99 09/04/18 06:01 09/04/18 06:01 09/04/18 06:01 09/04/18 06:01 09/04/18 06:01 Plan Activity: advance as tolerated, fall precautions Diet: low fat Special Instructions: record daily BP diary Additional Instructions: avoid NSAIDS. Follow up with: ALISA CLARK [Primary Care Provider] - 3-5 Days GERMAIN RICH MD [Staff Physician] - 7 Days TESSA ROSARIO MD [Staff Physician] - 7 Days Prescriptions: Pantoprazole [Protonix TAB] 40 mg PO BID #60 tablet traMADol [Ultram] 50 mg PO Q6HR PRN #10 tablet PRN Reason: Pain
[2018-09-04 11:44] VITALS: BP 125/74
--- NOTE | 2018-09-04 20:28 | Ultrasound Report ---
FINAL REPORT EXAM: US ABDOMEN COMPLETE HISTORY: Cirrhosis and Portal Hypertension TECHNIQUE: Ultrasound abdomen PRIORS: None. FINDINGS: No focal abnormality seen in the visualized portion of the liver parenchyma Gallbladder is contracted and not well seen. There is apparent gallbladder wall thickening. Sludge wi thin the lumen of the gallbladder cannot be excluded. No evidence for intra or extrahepatic biliary dilatation. Common bile duct is 0.21 centimeters in tra nsverse diameter right kidney is 11.8 x 5.3 x 6.3 centimeters Left kidney is 12.8 x 6.7 x 6.6 centimeters No evidence for hydronephrosis bilaterally. Renal echogenicity is within normal limits Spleen is within normal range for size measuring 11.0 centimeters in length. Visualized portions of the with pancreas are unremarkable. IMPRESSION: Contracted gallbladder not well evaluated. There apparent gallbladder wall thickening is
== END 2018-09-04 17:30 | disposition home or self-care (01) | DRG 919 ==
LOC: EDBD → ED 13:22 → IMCU 16:05 → 3A 09-03 15:21
PROVIDERS: ADMIT Internal Medicine; ATTEND Internal Medicine
PROC: 0DJ08ZZ Inspection of Upper Intestinal Tract, Via Natural or Artificial Opening Endoscopic (ICD-10-PCS; principal; 2018-09-02)
PROC: 30233N1 Transfusion of Nonautologous Red Blood Cells into Peripheral Vein, Percutaneous Approach (ICD-10-PCS; 2018-09-03)
DX: K91.840 Postprocedural hemorrhage of a digestive system organ or structure following a digestive system procedure (principal); E43 Unspecified severe protein-calorie malnutrition; E87.2 Acidosis; K22.10 Ulcer of esophagus without bleeding; I85.10 Secondary esophageal varices without bleeding; K76.6 Portal hypertension; K70.31 Alcoholic cirrhosis of liver with ascites; Z68.29 Body mass index [BMI] 29.0-29.9, adult; I10 Essential (primary) hypertension; K21.9 Gastro-esophageal reflux disease without esophagitis; D64.9 Anemia, unspecified; D69.6 Thrombocytopenia, unspecified; N52.9 Male erectile dysfunction, unspecified; Y84.8 Other medical procedures as the cause of abnormal reaction of the patient, or of later complication, without mention of misadventure at the time of the procedure
CPT/HCPCS: 36415; 70450; 74022; 76700; 80053; 82106; 82140; 85014; 85018; 85025; 85027; 85610; 85730; 86850; 86900; 86901; 86920; 93005; 93010; 96361; 96374; 96375; 99291; G0378; C9113; J2354; J2704; J7030; J7040; P9016

== ENCOUNTER 2018-12-05 09:29 | Outpatient (CLI) | payer MEDICAID, MEDICARE, OTHER ==
--- NOTE | 2018-12-05 23:58 | Ultrasound Report ---
PROCEDURE: US ABDOMEN LIMITED TECHNIQUE: Real-time sonography was performed of the right upper quadrant with image documentation. HISTORY: CIRRHOSIS COMPARISONS: None . FINDINGS: Gallbladder is well-distended with calculi and mild degree wall thickening. There are no pericholecys tic collections. Common duct 1 mm in caliber. Right kidney demonstrates normal echotexture. It measur es 10 x 6 x 6 cm without calculi or hydronephrosis. Visualized pancreatic head and body demonstrate n ormal echotexture. Liver demonstrates a diffusely heterogeneous increased echotexture. IMPRESSION:. Cholelithiasis with evidence of cholecystitis. Fatty liver . This document is electronically signed by Dakota Horowitz MD., Dec 05 2018 11:56:38 PM ET
== END 2018-12-05 09:30 | disposition home or self-care (01) ==
LOC: EDBD 09:29 → US 09:29
DX: K80.20 Calculus of gallbladder without cholecystitis without obstruction (principal); I10 Essential (primary) hypertension
CPT/HCPCS: 76705

== ENCOUNTER 2020-07-06 11:49 | Emergency (ER) | payer MEDICAID, MEDICARE ==
--- NOTE | 2020-07-06 12:02 | Event Note ---
ED Screening Note Date of service: 07/06/20 Time: 11:58 ED Screening Note: 60-year-old male presents with right hand laceration from working on a grinder carbon plant today laceration to finger This initial assessment/diagnostic orders/clinical plan/treatment(s) is/are subject to change based on patients health status, clinical progression and re- assessment by fellow clinical providers in the ED. Further treatment and workup at subsequent clinical providers discretion. Patient/guardian urged not to elope from the ED as their condition may be serious if not clinically assessed and managed. Initial orders include: xray hand
[2020-07-06 12:07] VITALS: BP 118/72
--- NOTE | 2020-07-06 12:49 | XRay Report ---
HISTORY:lac to finger COMPARISON: None. TECHNIQUE: AP lateral and obliques views were obtained FINDINGS: Bones: No fracture or dislocation. Joint spaces: Maintained. Soft tissues: No significant abnormality. Additional findings: None. IMPRESSION: 1. No significant abnormality. Signer Name: Giovanni Francis MD Signed: 07/06/2020 12:45 PM Workstation Name: [id number]
[2020-07-06] MEDS ORDERED: LIDOCAINE (1%) 10 MG/1 ML VIAL 20 ML MDV INFILTRATI ONE (14:47)
--- NOTE | 2020-07-06 16:30 | Emergency Department Report ---
ED General Adult HPI - General Chief complaint: Extremity Injury, Upper Stated complaint: RT MIDDLE FINGER INJURY Time Seen by Provider: 07/06/20 14:41 Source: patient Mode of arrival: Ambulatory Limitations: No Limitations - History of Present Illness Initial comments: 60-year-old -[place] male patient with history of hypertension presents with complaints of multiple lacerations to the right fingers today. x patient states he cut his hand with a burr grinder. He denies any numbness/tingling or decreased range of motion of his fingers. Patient rates his pain as 5/10 in severity. -: Sudden Improves with: none Worsens with: movement Treatments Prior to Arrival: none - Related Data Previous Rx's Medication Instructions Recorded Last Taken Type Cyclobenzaprine [Flexeril 10 MG 10 mg PO BID PRN #20 tablet 07/17/18 08/28/18 Rx TAB] Folic Acid [Folvite] 1 mg PO QDAY #30 tablet 07/25/18 08/28/18 Rx Magnesium Oxide [Mag-Ox] 400 mg PO QDAY #30 tablet 07/25/18 08/28/18 Rx Multivitamin Tab [Multiple Vitamin 1 each PO QDAY #30 tablet 07/25/18 08/28/18 Rx TAB (Theragran)] Potassium Chloride [K-Dur] 40 meq PO BID 30 Days tablet 07/25/18 08/28/18 Rx Thiamine [Vitamin B-1] 100 mg PO QDAY #30 tablet 07/25/18 08/28/18 Rx Omeprazole/Sodium Bicarbonate 1 each PO ONCE 30 Days #30 capsule 08/30/18 Unknown Rx [Omeprazole-Bicarb 20-1,100 Cap] Pantoprazole [Protonix TAB] 40 mg PO BID #60 tablet 09/04/18 Unknown Rx traMADoL [Ultram] 50 mg PO Q6HR PRN #10 tablet 09/04/18 Unknown Rx Ibuprofen [Motrin 800 MG tab] 800 mg PO Q8HR PRN #20 tablet 07/06/20 Unknown Rx Mupirocin [Bactroban 2% OINT] 1 applic TP TID 7 Days #1 tube 07/06/20 Unknown Rx cephALEXin [Keflex] 500 mg PO Q8HR 7 Days #21 cap 07/06/20 Unknown Rx Allergies Allergy/AdvReac Type Severity Reaction Status Date / Time No Known Allergies Allergy Verified 11/05/16 07:55 ED Review of Systems ROS: Stated complaint: RT MIDDLE FINGER INJURY Other details as noted in HPI Constitutional: denies: malaise Musculoskeletal: denies: arthralgia Skin: as per HPI Hematological/Lymphatic: denies: easy bleeding ED Past Medical Hx - Past Medical History Previous Medical History?: Yes Hx Hypertension: Yes Hx Congestive Heart Failure: No Hx Diabetes: No Hx Asthma: No Hx COPD: No Hx HIV: No Additional medical history: concussion, cirrhosis of liver - Surgical History Past Surgical History?: No Hx Pacemaker: No Hx Internal Defibrillator: No - Social History Smoking Status: Never Smoker Substance Use Type: None - Medications Home Medications: Home Medications Medication Instructions Recorded Confirmed Last Taken Type Cyclobenzaprine [Flexeril 10 MG 10 mg PO BID PRN #20 tablet 07/17/18 09/03/18 08/28/18 Rx TAB] Folic Acid [Folvite] 1 mg PO QDAY #30 tablet 07/25/18 09/03/18 08/28/18 Rx Magnesium Oxide [Mag-Ox] 400 mg PO QDAY #30 tablet 07/25/18 09/03/18 08/28/18 Rx Multivitamin Tab [Multiple Vitamin 1 each PO QDAY #30 tablet 07/25/18 09/03/18 08/28/18 Rx TAB (Theragran)] Potassium Chloride [K-Dur] 40 meq PO BID 30 Days tablet 07/25/18 09/03/18 08/28/18 Rx Thiamine [Vitamin B-1] 100 mg PO QDAY #30 tablet 07/25/18 09/03/18 08/28/18 Rx Omeprazole/Sodium Bicarbonate 1 each PO ONCE 30 Days #30 capsule 08/30/18 09/03/18 Unknown Rx [Omeprazole-Bicarb 20-1,100 Cap] Pantoprazole [Protonix TAB] 40 mg PO BID #60 tablet 09/04/18 Unknown Rx traMADoL [Ultram] 50 mg PO Q6HR PRN #10 tablet 09/04/18 Unknown Rx Ibuprofen [Motrin 800 MG tab] 800 mg PO Q8HR PRN #20 tablet 07/06/20 Unknown Rx Mupirocin [Bactroban 2% OINT] 1 applic TP TID 7 Days #1 tube 07/06/20 Unknown Rx cephALEXin [Keflex] 500 mg PO Q8HR 7 Days #21 cap 07/06/20 Unknown Rx ED Physical Exam - General Limitations: No Limitations General appearance: alert, in no apparent distress, obese - Head Head exam: Present: atraumatic, normocephalic - Eye Eye exam: Present: normal appearance. Absent: scleral icterus - Neck Neck exam: Present: full ROM - Respiratory Respiratory exam: Absent: respiratory distress - Cardiovascular Cardiovascular Exam: Present: regular rate - Extremities Exam Extremities exam: Present: other (Multiple lacerations noted to hand right fingers; 3 cm laceration noted to posterior right finger with mangled appearance; small laceration noted to index finger tip where it meets the nail; 1 cm laceration noted to base of ring finger; no obvious foreign bodies noted; normal perfusion and sensation) - Neurological Exam Neurological exam: Present: alert, oriented X3 - Psychiatric Psychiatric exam: Present: normal affect, normal mood - Skin Skin exam: Present: warm, dry, normal color. Absent: rash ED Course Vital Signs 07/06/20 12:03 Temperature 98.0 F Pulse Rate 80 Respiratory 18 Rate Blood Pressure 118/72 O2 Sat by Pulse 95 Oximetry - Laceration /Wound Repair Right Dorsal Finger Wound Length (cm): 3 (Second laceration at base of right ring finger 1 cm in length) Wound Explored: clean Betadine Prep?: Yes Anesthesia: 1% Lidocaine Volume Anesthetic (ccs): 8 Wound Repaired With: sutures Suture Size/Type: 4:0, proline Number of Sutures: 12 (Simple sutures, 11 placed in middle finger, 1 simple suture placed at base of right ring) Layer Closure?: No Sterile Dressing Applied?: Yes Progress: Minimal bleeding occurred patient tolerated procedure well without any immediate complications. ED Medical Decision Making - Medical Decision Making 60-year-old -[place] male patient presents with complaints of multiple lacerations to the right fingers today. x patient states he cut his hand with a burr grinder. He denies any numbness/tingling or decreased range of motion of his fingers. Patient rates his pain as 5/10 in severity. Laceration repair without any immediate complications. Patient tolerated procedure well. Sterile dressing placed over wound. Metal finger splint placed on right middle finger. Patient is well-appearing, his vitals are WNL, he is stable for discharge home. Keflex and Bactroban prescriptions given for home. Ibuprofen as needed pain. Patient to follow-up with primary care provider as needed. Discussed wound care, signs and symptoms of infection, and strict return precautions in great detail with patient who verbalizes understanding. Critical care attestation.: If time is entered above; I have spent that time in minutes in the direct care of this critically ill patient, excluding procedure time. ED Disposition Clinical Impression: Laceration of multiple sites of right hand and fingers Qualifiers: Encounter type: initial encounter Qualified Code(s): S61.411A - Laceration without foreign body of right hand, initial encounter; S61.219A - Laceration without foreign body of unspecified finger without damage to nail, initial encounter Disposition: TO HOME OR SELFCARE Is pt being admited?: No Condition: Stable Instructions: Laceration Care, Adult, Sutures, [place], or Adhesive Wound Cl osure Additional Instructions: Return to the emergency department in 10 days on 07/16/2019 for suture removal Prescriptions: Mupirocin [Bactroban 2% OINT] 1 applic TP TID 7 Days #1 tube cephALEXin [Keflex] 500 mg PO Q8HR 7 Days #21 cap Ibuprofen [Motrin 800 MG tab] 800 mg PO Q8HR PRN #20 tablet PRN Reason: Pain Referrals: PRIMARY CARE, [Primary Care Provider] - 3-5 Days
== END 2020-07-06 16:59 | disposition home or self-care (01) ==
LOC: ED 11:49
DX: S61.411A Laceration without foreign body of right hand, initial encounter (principal); S61.219A Laceration without foreign body of unspecified finger without damage to nail, initial encounter; I10 Essential (primary) hypertension; Z79.899 Other long term (current) drug therapy; W45.8XXA Other foreign body or object entering through skin, initial encounter; Y93.89 Activity, other specified; Y92.89 Other specified places as the place of occurrence of the external cause; Y99.8 Other external cause status

== ENCOUNTER 2020-07-17 08:53 | Emergency (ER) | payer MEDICAID, MEDICARE ==
--- NOTE | 2020-07-17 09:51 | Emergency Department Report ---
ED General Adult HPI - General Chief complaint: Laceration/Recheck/Suture Stated complaint: RT FINGER STITCHS REMOVED Time Seen by Provider: 07/17/20 09:37 Source: patient Mode of arrival: Ambulatory Limitations: No Limitations - History of Present Illness Initial comments: 60-year-old -Lao male patient presents for suture removal today. Smiley turalyson were placed here in the ED on 07/06/2020 after getting caught by a corn grinder. He denies any increased pain, swelling, fever/chills/sweats, or purulent drainage or redness from the wound. He states he did complete his Keflex prescription - Related Data Previous Rx's Medication Instructions Recorded Last Taken Type Cyclobenzaprine [Flexeril 10 MG 10 mg PO BID PRN #20 tablet 07/17/18 08/28/18 Rx TAB] Folic Acid [Folvite] 1 mg PO QDAY #30 tablet 07/25/18 08/28/18 Rx Magnesium Oxide [Mag-Ox] 400 mg PO QDAY #30 tablet 07/25/18 08/28/18 Rx Multivitamin Tab [Multiple Vitamin 1 each PO QDAY #30 tablet 07/25/18 08/28/18 Rx TAB (Theragran)] Potassium Chloride [K-Dur] 40 meq PO BID 30 Days tablet 07/25/18 08/28/18 Rx Thiamine [Vitamin B-1] 100 mg PO QDAY #30 tablet 07/25/18 08/28/18 Rx Omeprazole/Sodium Bicarbonate 1 each PO ONCE 30 Days #30 capsule 08/30/18 Unknown Rx [Omeprazole-Bicarb 20-1,100 Cap] Pantoprazole [Protonix TAB] 40 mg PO BID #60 tablet 09/04/18 Unknown Rx traMADoL [Ultram] 50 mg PO Q6HR PRN #10 tablet 09/04/18 Unknown Rx Ibuprofen [Motrin 800 MG tab] 800 mg PO Q8HR PRN #20 tablet 07/06/20 Unknown Rx Mupirocin [Bactroban 2% OINT] 1 applic TP TID 7 Days #1 tube 07/06/20 Unknown Rx cephALEXin [Keflex] 500 mg PO Q8HR 7 Days #21 cap 07/06/20 Unknown Rx Clindamycin [Clindamycin CAP] 300 mg PO Q6H 10 Days #40 capsule 07/17/20 Unknown Rx Mupirocin [Bactroban 2% OINT] 1 applic TP TID 10 Days #1 tube 07/17/20 Unknown Rx Allergies Allergy/AdvReac Type Severity Reaction Status Date / Time No Known Allergies Allergy Verified 11/05/16 07:55 ED Review of Systems ROS: Stated complaint: RT FINGER STITCHS REMOVED Other details as noted in HPI Constitutional: denies: chills, fever Skin: as per HPI. denies: change in color Neurological: denies: numbness, paresthesias ED Past Medical Hx - Past Medical History Previous Medical History?: Yes Hx Hypertension: Yes Hx Congestive Heart Failure: No Hx Diabetes: No Hx Asthma: No Hx COPD: No Hx HIV: No Additional medical history: concussion, cirrhosis of liver - Surgical History Hx Pacemaker: No Hx Internal Defibrillator: No - Social History Smoking Status: Never Smoker Substance Use Type: None - Medications Home Medications: Home Medications Medication Instructions Recorded Confirmed Last Taken Type Cyclobenzaprine [Flexeril 10 MG 10 mg PO BID PRN #20 tablet 07/17/18 09/03/18 08/28/18 Rx TAB] Folic Acid [Folvite] 1 mg PO QDAY #30 tablet 07/25/18 09/03/18 08/28/18 Rx Magnesium Oxide [Mag-Ox] 400 mg PO QDAY #30 tablet 07/25/18 09/03/18 08/28/18 Rx Multivitamin Tab [Multiple Vitamin 1 each PO QDAY #30 tablet 07/25/18 09/03/18 08/28/18 Rx TAB (Theragran)] Potassium Chloride [K-Dur] 40 meq PO BID 30 Days tablet 07/25/18 09/03/18 08/28/18 Rx Thiamine [Vitamin B-1] 100 mg PO QDAY #30 tablet 07/25/18 09/03/18 08/28/18 Rx Omeprazole/Sodium Bicarbonate 1 each PO ONCE 30 Days #30 capsule 08/30/18 09/03/18 Unknown Rx [Omeprazole-Bicarb 20-1,100 Cap] Pantoprazole [Protonix TAB] 40 mg PO BID #60 tablet 09/04/18 Unknown Rx traMADoL [Ultram] 50 mg PO Q6HR PRN #10 tablet 09/04/18 Unknown Rx Ibuprofen [Motrin 800 MG tab] 800 mg PO Q8HR PRN #20 tablet 07/06/20 Unknown Rx Mupirocin [Bactroban 2% OINT] 1 applic TP TID 7 Days #1 tube 07/06/20 Unknown Rx cephALEXin [Keflex] 500 mg PO Q8HR 7 Days #21 cap 07/06/20 Unknown Rx Clindamycin [Clindamycin CAP] 300 mg PO Q6H 10 Days #40 capsule 07/17/20 Unknown Rx Mupirocin [Bactroban 2% OINT] 1 applic TP TID 10 Days #1 tube 07/17/20 Unknown Rx ED Physical Exam - General Limitations: No Limitations General appearance: alert, in no apparent distress - Head Head exam: Present: atraumatic, normocephalic - Eye Eye exam: Absent: scleral icterus - Respiratory Respiratory exam: Absent: respiratory distress - Cardiovascular Cardiovascular Exam: Present: regular rate - Extremities Exam Extremities exam: Present: other (12 sutures noted in right finger without surrounding erythema or swelling; patient has normal sensation and full range of motion of the finger; normal perfusion) - Neurological Exam Neurological exam: Present: alert, oriented X3, normal gait - Psychiatric Psychiatric exam: Present: normal affect, normal mood - Skin Skin exam: Present: warm, dry, intact, normal color. Absent: rash - Procedure Description Procedures done: 12 sutures removed from right middle finger; mild wound dehiscence and purulent drainage is noted; wound clean and dressed in sterile dressing ED Medical Decision Making - Medical Decision Making 60-year-old -Lao male patient presents for suture removal today. Sutures were placed here in the ED on 07/06/2020 after getting caught by a corn grinder. He denies any increased pain, swelling, fever/chills/sweats, or purulent drainage or redness from the wound. He states he did complete his Keflex prescription Mild wound dehiscence and purulent drainage noted on exam. Sutures removed without difficulty. Sample taken for wound culture. Prescription for clindamycin and mupirocin given. Discussed wound care and signs and symptoms that should prompt immediate return to the emergency department in detail with patient who verbalizes understanding. His vitals are normal, he is well- appearing, he is stable for discharge home. Patient to follow-up with primary care in 3 days. Critical care attestation.: If time is entered above; I have spent that time in minutes in the direct care of this critically ill patient, excluding procedure time. ED Disposition Clinical Impression: Encounter for removal of sutures, Wound infection Disposition: TO HOME OR SELFCARE Is pt being admited?: No Condition: Stable Instructions: Wound Closure Removal, Care After, Wound Infection Prescriptions: Mupirocin [Bactroban 2% OINT] 1 applic TP TID 10 Days #1 tube Clindamycin [Clindamycin CAP] 300 mg PO Q6H 10 Days #40 capsule Referrals: [facility] [Provider Group] - 2-3 Days
[2020-07-17 09:54] VITALS: BP 110/61
== END 2020-07-17 10:28 | disposition home or self-care (01) ==
LOC: ED 08:53
DX: L08.9 Local infection of the skin and subcutaneous tissue, unspecified (principal); Z48.02 Encounter for removal of sutures; I10 Essential (primary) hypertension; Z79.1 Long term (current) use of non-steroidal anti-inflammatories (NSAID); Z79.2 Long term (current) use of antibiotics; Z79.899 Other long term (current) drug therapy
CPT/HCPCS: 87116; 99282

== ENCOUNTER 2021-02-16 18:19 | Emergency (ER) | payer MEDICAID, MEDICARE ==
[2021-02-16 21:40] LABS: Hematocrit 37.3 % (35.5-45.6); Hemoglobin 12.9 gm/dl (11.8-15.2); Mean Corpuscular HGB Conc 35 % (32-34); Mean Corpuscular Volume 88 fl (84-94); Platelet Count 159 K/mm3 (140-440); Red Blood Count 4.23 M/mm3 (3.65-5.03); Red Cell Distribution Width 15.7 % (13.2-15.2)
[2021-02-16 21:58] LABS: Alanine Aminotransferase 16 units/L (7-56); Albumin 3.2 g/dL (3.9-5); BUN/Creatinine Ratio 8; Blood Urea Nitrogen 5 mg/dL (9-20); Calcium 8.5 mg/dL (8.4-10.2); Hemolysis Index 6
--- NOTE | 2021-02-16 21:58 | XRay Report ---
CHEST 2 VIEWS INDICATION / CLINICAL INFORMATION: Shortness of Breath. COMPARISON: None available. FINDINGS: SUPPORT DEVICES: None. HEART / MEDIASTINUM: Enlarged LUNGS / PLEURA: Mild pulmonary edema. No pneumothorax. ADDITIONAL FINDINGS: No significant additional findings. IMPRESSION: Mild CHF. Signer Name: Sumanth Montano MD Signed: 02/16/2021 9:53 PM Workstation Name: [id number]
--- NOTE | 2021-02-16 23:34 | Event Note ---
ED Screening Note ED Screening Note: BLE edema right greater than left that began a week ago +SOB no CP PMHx HTN, cirrhosis no allergies to meds This initial assessment/diagnostic orders/clinical plan/treatment(s) is/are subject to change based on patients health status, clinical progression and re- assessment by fellow clinical providers in the ED. Further treatment and workup at subsequent clinical providers discretion. Patient/guardian urged not to elope from the ED as their condition may be serious if not clinically assessed and managed. Initial orders include: labs, EKG, CXR, US BLE
--- NOTE | 2021-02-17 00:38 | Vascular Lab Report ---
DUPLEX DOPPLER LOWER EXTREMITY VEINS, BILATERAL INDICATION / CLINICAL INFORMATION: BLE edema, right greater than left. TECHNIQUE: Duplex doppler imaging was performed through the veins of both lower extremities using gabriela ous compression and other maneuvers. COMPARISON: None available. FINDINGS: RIGHT COMMON FEMORAL VEIN: Negative. RIGHT FEMORAL VEIN: Negative. RIGHT POPLITEAL VEIN: Negative. RIGHT CALF VEINS: Negative. LEFT COMMON FEMORAL VEIN: Negative. LEFT FEMORAL VEIN: Negative. LEFT POPLITEAL VEIN: Negative. LEFT CALF VEINS: Negative. ADDITIONAL FINDINGS: None. IMPRESSION: 1. No sonographic evidence for DVT in either lower extremity. Signer Name: Gita Hannon MD Signed: 02/17/2021 12:33 AM Workstation Name: [id number]
[2021-02-17] MEDS ORDERED: FUROSEMIDE 20 MG/2 ML INJ IV ONE (11:09)
[2021-02-17] MEDS ORDERED: POTASSIUM CHLORIDE ER 20 MEQ TAB PO ONE ×2 (11:09→14:00)
--- NOTE | 2021-02-17 11:12 | Electrocardiograph Report ---
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
--- NOTE | 2021-02-17 11:14 | Emergency Department Report ---
ED General Adult HPI - General Chief complaint: Dyspnea/Respdistress Stated complaint: LEG SWELLING PUI?: No Time Seen by Provider: 02/16/21 23:32 Source: patient Mode of arrival: Ambulatory Limitations: No Limitations - History of Present Illness Initial comments: Patient is a pleasant 60-year-old -[place]ian male that comes to the emergency room today complaining of bilateral lower extremity edema and abdominal distention. Patient has a history of alcohol related cirrhosis. Patient states that he is no longer drinking, however, his sister states that he does drink daily. Patient had been following with a local primary care doctor but due to a loss of some of his insurance he has not followed up. He states that he was on water pills at one time. Patient denies any heart attack or heart failure. Patient reports a recent infection to his right lower extremity which is now healing. Patient denies chest pain, shortness of breath, fever or chills, abdominal pain. He is cooperative on exam. At the time the current provider seen him the patient had been here over 12 hours waiting to be seen. He remains even at that time calm and cooperative. -: Gradual, month(s) Location: abdomen, lower extremity Associated Symptoms: denies other symptoms. denies: confusion, chest pain, cough, diaphoresis, fever/chills, headaches, loss of appetite, malaise, nausea/vomiting, rash, seizure, shortness of breath, syncope, weakness - Related Data Previous Rx's Medication Instructions Recorded Last Taken Type Folic Acid [Folvite] 1 mg PO QDAY #30 tablet 07/25/18 08/28/18 Rx Magnesium Oxide [Mag-Ox] 400 mg PO QDAY #30 tablet 07/25/18 08/28/18 Rx Multivitamin Tab [Multiple Vitamin 1 each PO QDAY #30 tablet 07/25/18 08/28/18 Rx TAB (Theragran)] Thiamine [Vitamin B-1] 100 mg PO QDAY #30 tablet 07/25/18 08/28/18 Rx Pantoprazole [Protonix TAB] 40 mg PO BID #60 tablet 09/04/18 Unknown Rx Furosemide [Lasix] 20 mg PO QDAY #30 tablet 02/17/21 Unknown Rx Potassium Chloride [K-Dur] 10 meq PO QDAY #30 tablet 02/17/21 Unknown Rx Allergies Allergy/AdvReac Type Severity Reaction Status Date / Time No Known Allergies Allergy Verified 11/05/16 07:55 ED Review of Systems ROS: Stated complaint: LEG SWELLING Other details as noted in HPI Comment: All other systems reviewed and negative ED Past Medical Hx - Past Medical History Previous Medical History?: Yes Hx Hypertension: Yes Hx CVA: No Hx Heart Attack/AMI: No Hx Congestive Heart Failure: No Hx Diabetes: No Hx Deep Vein Thrombosis: No Hx Pulmonary Embolism: No Hx GERD: No Hx Liver Disease: Yes Hx Renal Disease: No Hx of Cancer: No Hx Sickle Cell Disease: No Hx Arthritis: No Hx Headaches / Migraines: No Hx Seizures: No Hx Kidney Stones: No Hx Psychiatric Treatment: No Hx Asthma: No Hx COPD: No Hx Tuberculosis: No Hx Dementia: No Hx HIV: No Additional medical history: concussion, cirrhosis of liver, OBESE - Surgical History Past Surgical History?: Yes Hx Pacemaker: No Hx Internal Defibrillator: No Additional Surgical History: Patient reports surgery to his right lower extremity - Family History Family history: no significant - Social History Smoking Status: Never Smoker Substance Use Type: Alcohol - Medications Home Medications: Home Medications Medication Instructions Recorded Confirmed Last Taken Type Folic Acid [Folvite] 1 mg PO QDAY #30 tablet 07/25/18 09/03/18 08/28/18 Rx Magnesium Oxide [Mag-Ox] 400 mg PO QDAY #30 tablet 07/25/18 09/03/18 08/28/18 Rx Multivitamin Tab [Multiple Vitamin 1 each PO QDAY #30 tablet 07/25/18 09/03/18 08/28/18 Rx TAB (Theragran)] Thiamine [Vitamin B-1] 100 mg PO QDAY #30 tablet 07/25/18 09/03/18 08/28/18 Rx Pantoprazole [Protonix TAB] 40 mg PO BID #60 tablet 09/04/18 Unknown Rx Furosemide [Lasix] 20 mg PO QDAY #30 tablet 02/17/21 Unknown Rx Potassium Chloride [K-Dur] 10 meq PO QDAY #30 tablet 02/17/21 Unknown Rx ED Physical Exam - General Limitations: No Limitations General appearance: alert, in no apparent distress - Head Head exam: Present: atraumatic, normocephalic - Eye Eye exam: Present: normal appearance, PERRL, EOMI - ENT ENT exam: Present: mucous membranes moist - Neck Neck exam: Present: normal inspection - Respiratory Respiratory exam: Present: normal lung sounds bilaterally, rales. Absent: respiratory distress - Cardiovascular Cardiovascular Exam: Present: regular rate, normal rhythm, other (Bilateral lower extremity edema). Absent: systolic murmur, diastolic murmur, rubs, gallop - GI/Abdominal GI/Abdominal exam: Present: distended, normal bowel sounds, other (Obese, no fluid shifting) - Rectal Rectal exam: Present: deferred - Extremities Exam Extremities exam: Present: full ROM, other - Back Exam Back exam: Present: normal inspection - Neurological Exam Neurological exam: Present: alert, oriented X3, other - Psychiatric Psychiatric exam: Present: normal affect, normal mood - Skin Skin exam: Present: warm, dry, intact, normal color. Absent: rash ED Course Vital Signs 02/16/21 02/17/21 20:50 13:12 Temperature 98.2 F 97.8 F Pulse Rate 67 65 Respiratory 18 16 Rate Blood Pressure 146/78 Blood Pressure 139/83 [Right] O2 Sat by Pulse 98 97 Oximetry - Reevaluation(s) Reevaluation #1: 02/17/21 11:17 LIVES WITH SISTER AND MOTHER SMOOTH IS SISTER MEL IS MOTHER- [phone] PER SMOOTH PT IS STILL DRINKING ETOH AND HE IS TAKING NO HOME MEDS DUE TO CHANGE IN INSURANCE HE HAS NOT BEEN FOLLOWING WITH PCP OR GI MD Reevaluation #2: 02/17/21 15:[address] Isaacs Reevaluation #3: 02/17/21 15:17 Patient will be discharged home with his sister. ED Medical Decision Making - Lab Data Result diagrams: 02/16/21 21:27 02/16/21 21:27 - EKG Data EKG shows normal: sinus rhythm Rate: normal - EKG Data When compared to previous EKG there are: no significant change Interpretation: no acute changes, other - Radiology Data Radiology results: report reviewed, image reviewed DVT negative for ultrasound Chest x-ray noted Abdominal ultrasound noted - Medical Decision Making STAFFED WITH DR TRIPATHI Lab Results 02/16/21 02/16/21 02/17/21 Range/Units 21:27 21:27 01:41 WBC 5.6 (4.5-11.0) K/mm3 RBC 4.23 (3.65-5.03) M/mm3 Hgb 12.9 (11.8-15.2) gm/dl Hct 37.3 (35.5-45.6) % MCV 88 (84-94) fl MCH 31 (28-32) pg MCHC 35 H (32-34) % RDW 15.7 H (13.2-15.2) % Plt Count 159 (140-440) K/mm3 PT (12.2-14.9) Sec. INR (0.87-1.13) Sodium 136 L (137-145) mmol/L Potassium 3.6 (3.6-5.0) mmol/L Chloride 101.2 (98-107) mmol/L Carbon Dioxide 26 (22-30) mmol/L Anion Gap 12 mmol/L BUN 5 L (9-20) mg/dL Creatinine 0.6 L (0.8-1.3) mg/dL Estimated GFR > 60 ml/min BUN/Creatinine Ratio 8 % Glucose 87 (75-100) mg/dL Calcium 8.5 (8.4-10.2) mg/dL Total Bilirubin 0.50 (0.1-1.2) mg/dL Direct Bilirubin (0-0.2) mg/dL Indirect Bilirubin mg/dL AST 41 H (5-40) units/L ALT 16 (7-56) units/L Alkaline Phosphatase 150 H (35-129) units/L Ammonia (25-60) umol/L Troponin T < 0.010 (0.00-0.029) ng/mL NT-Pro-B Natriuret Pep 160.8 (0-900) pg/mL Total Protein 7.0 (6.3-8.2) g/dL Albumin 3.2 L (3.9-5) g/dL Albumin/Globulin Ratio 0.8 % Lipase (13-60) units/L Urine Color (Yellow) Urine Turbidity (Clear) Urine pH (5.0-7.0) Ur Specific [place] (1.003-1.030) Urine Protein (Negative) mg/dL Urine Glucose (UA) (Negative) mg/dL Urine Ketones (Negative) mg/dL Urine Blood (Negative) Urine Nitrite (Negative) Urine Bilirubin (Negative) Urine Urobilinogen (<2.0) mg/dL Ur Leukocyte Esterase (Negative) Urine WBC (Auto) (0.0-6.0) /HPF Urine RBC (Auto) (0.0-6.0) /HPF U Epithel Cells (Auto) (0-13.0) /HPF Plasma/Serum Alcohol (0-0.07) % Hepatitis A IgM Ab (NonReactive) Hep Bs Antigen (Negative) Hep B Core IgM Ab (NonReactive) Hepatitis C Antibody (NonReactive) 02/17/21 02/17/21 02/17/21 Range/Units 11:36 11:36 11:36 WBC (4.5-11.0) K/mm3 RBC (3.65-5.03) M/mm3 Hgb (11.8-15.2) gm/dl Hct (35.5-45.6) % MCV (84-94) fl MCH (28-32) pg MCHC (32-34) % RDW (13.2-15.2) % Plt Count (140-440) K/mm3 PT 14.0 (12.2-14.9) Sec. INR 1.03 (0.87-1.13) Sodium (137-145) mmol/L Potassium (3.6-5.0) mmol/L Chloride (98-107) mmol/L Carbon Dioxide (22-30) mmol/L Anion Gap mmol/L BUN (9-20) mg/dL Creatinine (0.8-1.3) mg/dL Estimated GFR ml/min BUN/Creatinine Ratio % Glucose (75-100) mg/dL Calcium (8.4-10.2) mg/dL Total Bilirubin 0.70 (0.1-1.2) mg/dL Direct Bilirubin 0.2 (0-0.2) mg/dL Indirect Bilirubin 0.5 mg/dL AST 44 H (5-40) units/L ALT 14 (7-56) units/L Alkaline Phosphatase 146 H (35-129) units/L Ammonia 28.0 (25-60) umol/L Troponin T < 0.010 (0.00-0.029) ng/mL NT-Pro-B Natriuret Pep (0-900) pg/mL Total Protein 7.2 (6.3-8.2) g/dL Albumin 3.6 L (3.9-5) g/dL Albumin/Globulin Ratio 1.0 % Lipase 12 L (13-60) units/L Urine Color (Yellow) Urine Turbidity (Clear) Urine pH (5.0-7.0) Ur Specific [place] (1.003-1.030) Urine Protein (Negative) mg/dL Urine Glucose (UA) (Negative) mg/dL Urine Ketones (Negative) mg/dL Urine Blood (Negative) Urine Nitrite (Negative) Urine Bilirubin (Negative) Urine Urobilinogen (<2.0) mg/dL Ur Leukocyte Esterase (Negative) Urine WBC (Auto) (0.0-6.0) /HPF Urine RBC (Auto) (0.0-6.0) /HPF U Epithel Cells (Auto) (0-13.0) /HPF Plasma/Serum Alcohol (0-0.07) % Hepatitis A IgM Ab (NonReactive) Hep Bs Antigen (Negative) Hep B Core IgM Ab (NonReactive) Hepatitis C Antibody (NonReactive) 02/17/21 02/17/21 02/17/21 Range/Units 11:36 11:36 Unknown WBC (4.5-11.0) K/mm3 RBC (3.65-5.03) M/mm3 Hgb (11.8-15.2) gm/dl Hct (35.5-45.6) % MCV (84-94) fl MCH (28-32) pg MCHC (32-34) % RDW (13.2-15.2) % Plt Count (140-440) K/mm3 PT (12.2-14.9) Sec. INR (0.87-1.13) Sodium (137-145) mmol/L Potassium (3.6-5.0) mmol/L Chloride (98-107) mmol/L Carbon Dioxide (22-30) mmol/L Anion Gap mmol/L BUN (9-20) mg/dL Creatinine (0.8-1.3) mg/dL Estimated GFR ml/min BUN/Creatinine Ratio % Glucose (75-100) mg/dL Calcium (8.4-10.2) mg/dL Total Bilirubin (0.1-1.2) mg/dL Direct Bilirubin (0-0.2) mg/dL Indirect Bilirubin mg/dL AST (5-40) units/L ALT (7-56) units/L Alkaline Phosphatase (35-129) units/L Ammonia (25-60) umol/L Troponin T (0.00-0.029) ng/mL NT-Pro-B Natriuret Pep (0-900) pg/mL Total Protein (6.3-8.2) g/dL Albumin (3.9-5) g/dL Albumin/Globulin Ratio % Lipase (13-60) units/L Urine Color Colorless (Yellow) Urine Turbidity Clear (Clear) Urine pH 7.0 (5.0-7.0) Ur Specific [place] 1.003 (1.003-1.030) Urine Protein <15 mg/dl (Negative) mg/dL Urine Glucose (UA) Neg (Negative) mg/dL Urine Ketones Neg (Negative) mg/dL Urine Blood Neg (Negative) Urine Nitrite Neg (Negative) Urine Bilirubin Neg (Negative) Urine Urobilinogen < 2.0 (<2.0) mg/dL Ur Leukocyte Esterase Neg (Negative) Urine WBC (Auto) 1.0 (0.0-6.0) /HPF Urine RBC (Auto) < 1.0 (0.0-6.0) /HPF U Epithel Cells (Auto) < 1.0 (0-13.0) /HPF Plasma/Serum Alcohol < 0.01 (0-0.07) % Hepatitis A IgM Ab Non-reactive (NonReactive) Hep Bs Antigen Non-reactive (Negative) Hep B Core IgM Ab Non-reactive (NonReactive) Hepatitis C Antibody Non-reactive (NonReactive) Vital Signs 02/16/21 02/17/21 20:50 13:12 Temperature 98.2 F 97.8 F Pulse Rate 67 65 Respiratory 18 16 Rate Blood Pressure 146/78 Blood Pressure 139/83 [Right] O2 Sat by Pulse 98 97 Oximetry labs noted ammonia and INR normal lipase normal WBC normal hep panel neg imaging noted lasix 20 mg IV given with K pt had brisk response - large amounts of clear urine noted staffed with Dr Tripathi pt lives with mother and sister- he will be d/c home with them today I had a long discussion with the patient and his sister regarding his post discharge plan of care including Lasix, potassium and follow-up. Both sister and patient verbalized understanding of plan. On discharge patient is ambulatory, [id number] and in no acute distress. He denies chest pain or shortness of breath. He has diuresed at least 2 L of urine with the Lasix today. - Differential Diagnosis Rule out CHF, cirrhosis of the liver, infection, cholecystitis, pancreatiti Critical care attestation.: If time is entered above; I have spent that time in minutes in the direct care of this critically ill patient, excluding procedure time. ED Disposition Clinical Impression: Alcohol abuse, Transaminitis, Fatty liver Disposition: DC-01 TO HOME OR SELFCARE Is pt being admited?: No Does the pt Need Aspirin: No Condition: Stable Additional Instructions: med as ordered follow up with pcp next week referral below he will see you because youve been a pt here avoid alcohol and tylenol it is hard on your liver Prescriptions: Potassium Chloride [K-Dur] 10 meq PO QDAY #30 tablet Furosemide [Lasix] 20 mg PO QDAY #30 tablet Referrals: ALISA CLARK MD [Staff Physician] - 3-5 Days Time of Disposition: 14:48
[2021-02-17 12:13] LABS: INR 1.03 (0.87-1.13)
[2021-02-17 12:30] LABS: Alanine Aminotransferase 14 units/L (7-56); Albumin 3.6 g/dL (3.9-5); Bilirubin,Direct 0.2 mg/dL (0-0.2)
[2021-02-17 12:42] LABS: Hepatitis B Surface Antigen Non-Reactive (Negative); Hepatitis C Virus Antibody Non-Reactive (NonReactive)
[2021-02-17 13:14] VITALS: BP 139/83
[2021-02-17 14:06] LABS: Bilirubin,Urine NEG (Negative); Blood,Urine NEG (Negative); Color,Urine Colorless (Yellow); Protein,Urine <15 mg/dL mg/dL (Negative); RBC,Urine < 1.0 /HPF (0.0-6.0); Urobilinogen,Urine < 2.0 mg/dL (<2.0)
--- NOTE | 2021-02-17 14:25 | Ultrasound Report ---
LIMITED RUQ ABDOMINAL ULTRASOUND INDICATION / CLINICAL INFORMATION: RUQ -ABD PAIN. COMPARISON: Ultrasound from 12/02/2018 FINDINGS: Limited study due to body habitus and shadowing from bowel gas. PANCREAS: There is increased echogenicity of the pancreas, which is nonspecific, though may reflect f atty infiltration/atrophy. The tail is largely obscured. ABDOMINAL AORTA: Distal aorta is not well seen. Proximal and mid aorta are within normal limits. IVC: No significant abnormality. LIVER: The liver measures 15.0 cm in length. The liver demonstrates increased echogenicity, compatib le with fatty infiltration. No focal hepatic lesion. PORTAL VEIN: Normal hepatopedal blood flow in the main portal vein. GALLBLADDER: No significant abnormality of the gallbladder. Previously seen gallbladder stones are no t discretely seen on current study. No significant wall thickening. BILE DUCTS: Borderline dilated common bile duct measuring 7 mm. No obstructing stone or mass. RIGHT KIDNEY: No significant abnormality visualized. FREE FLUID: None. ADDITIONAL FINDINGS: None. IMPRESSION: Limited study. 1. Fatty infiltration of the liver. 2. Unremarkable sonographic appearance of the gallbladder. Borderline dilated common bile duct, measu ring 7 mm. No discrete obstructing stone or mass. Recommend correlation with laboratory values to exc lude distal biliary obstruction. 3. Nonspecific increased echogenicity of the pancreas, may be seen with fatty infiltration/atrophy. Signer Name: Clyde Cannon MD Signed: 02/17/2021 2:09 PM Workstation Name: [id number]
[2021-02-17 14:58] LABS: Amphetamine Screen,Urine Negative; Benzodiazepines Screen,Urine Negative; Cannabinoid Screen,Urine Negative; Cocaine Screen,Urine Negative; Methadone Screen,Urine Negative; Opiate Screen,Urine Negative
== END 2021-02-17 16:48 | disposition home or self-care (01) ==
LOC: ED 18:19
DX: F10.10 Alcohol abuse, uncomplicated (principal); R74.01 Elevation of levels of liver transaminase levels; K76.0 Fatty (change of) liver, not elsewhere classified; I10 Essential (primary) hypertension; Z98.890 Other specified postprocedural states
CPT/HCPCS: 36415; 71046; 76705; 80053; 80074; 80076; 80307; 81001; 82140; 82247; 82248; 83690; 83880; 84484; 85027; 85610; 93005; 93970; 96374; 99284; J1940; 80320; G0480

== ENCOUNTER 2021-12-23 11:02 | Emergency (ER) | payer MEDICARE ==
[2021-12-23 11:12] VITALS: BP 123/62
--- NOTE | 2021-12-23 11:49 | XRay Report ---
CHEST 2 VIEWS INDICATION / CLINICAL INFORMATION: SOB. COMPARISON: 02/16/21. FINDINGS: SUPPORT DEVICES: None. HEART / MEDIASTINUM: Mild cardiomegaly is stable. Pulmonary vasculature is normal. There is mild aort ic tortuosity without aneurysm. LUNGS / PLEURA: No significant pulmonary or pleural abnormality. No pneumothorax. ADDITIONAL FINDINGS: No significant additional findings. IMPRESSION: Cardiomegaly without acute pulmonary disease. Signer Name: Henry Mahan MD Signed: 12/23/2021 11:44 AM Workstation Name: [id number]
[2021-12-23 12:12] LABS: Basophils # (Auto) 0.1 K/mm3 (0.0-0.1); Basophils % (Auto) 1.2 % (0.0-1.8); Eosinophils # (Auto) 0.3 K/mm3 (0.0-0.4); Eosinophils % (Auto) 3.7 % (0.0-4.3); Hematocrit 40.4 % (35.5-45.6); Hemoglobin 13.7 gm/dl (11.8-15.2); Lymphocytes # (Auto) 1.9 K/mm3 (1.2-5.4); Lymphocytes % (Auto) 21.9 % (13.4-35.0); Mean Corpuscular HGB Conc 34 % (32-34); Mean Corpuscular Volume 84 fl (84-94); Monocytes # (Auto) 0.9 K/mm3 (0.0-0.8); Monocytes % (Auto) 10.6 % (0.0-7.3); Platelet Count 198 K/mm3 (140-440); Red Blood Count 4.79 M/mm3 (3.65-5.03); Red Cell Distribution Width 15.1 % (13.2-15.2)
[2021-12-23 13:00] LABS: Blood Urea Nitrogen 8 mg/dL (9-20); Calcium 8.9 mg/dL (8.4-10.2); Hemolysis Index 1
[2021-12-23 13:07] LABS: BUN/Creatinine Ratio 13
--- NOTE | 2021-12-23 15:33 | XRay Report ---
CHEST 1 VIEW 12/23/2021 3:16 PM INDICATION / CLINICAL INFORMATION: sob. COMPARISON: Earlier today at 1134 hours FINDINGS: SUPPORT DEVICES: None. HEART / MEDIASTINUM: Stable mild cardiomegaly LUNGS / PLEURA: No significant pulmonary or pleural abnormality. No pneumothorax. ADDITIONAL FINDINGS: No significant additional findings. IMPRESSION: 1. Stable cardiomegaly. No acute change since earlier today. Signer Name: Jean Carlos Cedillo Jr, MD Signed: 12/23/2021 3:28 PM Workstation Name: [id number]
--- NOTE | 2021-12-23 16:08 | Emergency Department Report ---
ED General Adult HPI - General Chief complaint: Dyspnea/Respdistress Stated complaint: SOB/BODY SWELLING Time Seen by Provider: 12/23/21 14:31 Source: patient Mode of arrival: Ambulatory Limitations: No Limitations - History of Present Illness Initial comments: The patient presents to the emergency department the chief complaint of increased fluid buildup that has been getting worse over the last year. Patient states now he is unable to walk long distances secondary to the shortness of breath. Patient denies chest pain or abdominal pain. -: Gradual Severity scale (0 -10): 0 Consistency: constant Improves with: none Worsens with: none Associated Symptoms: denies other symptoms Treatments Prior to Arrival: none - Related Data Previous Rx's Medication Instructions Recorded Last Taken Type Folic Acid [Folvite] 1 mg PO QDAY #30 tablet 07/25/18 08/28/18 Rx Magnesium Oxide [Mag-Ox] 400 mg PO QDAY #30 tablet 07/25/18 08/28/18 Rx Multivitamin Tab [Multiple Vitamin 1 each PO QDAY #30 tablet 07/25/18 08/28/18 Rx TAB (Theragran)] Thiamine [Vitamin B-1] 100 mg PO QDAY #30 tablet 07/25/18 08/28/18 Rx Pantoprazole [Protonix TAB] 40 mg PO BID #60 tablet 09/04/18 Unknown Rx Furosemide [Lasix] 20 mg PO QDAY #30 tablet 02/17/21 Unknown Rx Potassium Chloride [K-Dur] 10 meq PO QDAY #30 tablet 02/17/21 Unknown Rx Furosemide [Lasix] 20 mg PO QDAY #12 tablet 12/23/21 Unknown Rx Allergies Allergy/AdvReac Type Severity Reaction Status Date / Time No Known Allergies Allergy Verified 11/05/16 07:55 ED Review of Systems ROS: Stated complaint: SOB/BODY SWELLING Other details as noted in HPI Comment: All other systems reviewed and negative Constitutional: denies: chills, fever Eyes: denies: eye pain, eye discharge, vision change ENT: denies: ear pain, throat pain Respiratory: shortness of breath. denies: cough, wheezing Cardiovascular: denies: chest pain, palpitations Endocrine: no symptoms reported Gastrointestinal: denies: abdominal pain, nausea, diarrhea Genitourinary: denies: urgency, dysuria Musculoskeletal: denies: back pain, joint swelling, arthralgia Skin: denies: rash, lesions Neurological: denies: headache, weakness, paresthesias Psychiatric: denies: anxiety, depression Hematological/Lymphatic: denies: easy bleeding, easy bruising ED Past Medical Hx - Past Medical History Hx Hypertension: Yes Hx CVA: No Hx Heart Attack/AMI: No Hx Congestive Heart Failure: No Hx Diabetes: No Hx Deep Vein Thrombosis: No Hx Pulmonary Embolism: No Hx GERD: No Hx Liver Disease: Yes Hx Renal Disease: No Hx Sickle Cell Disease: No Hx Arthritis: No Hx Headaches / Migraines: No Hx Seizures: No Hx Kidney Stones: No Hx Psychiatric Treatment: No Hx Asthma: No Hx COPD: No Hx Tuberculosis: No Hx Dementia: No Hx HIV: No Additional medical history: concussion, cirrhosis of liver, OBESE - Surgical History Hx Pacemaker: No Hx Internal Defibrillator: No Additional Surgical History: Patient reports surgery to his right lower extremity - Social History Smoking Status: Never Smoker Substance Use Type: Alcohol - Medications Home Medications: Home Medications Medication Instructions Recorded Confirmed Last Taken Type Folic Acid [Folvite] 1 mg PO QDAY #30 tablet 07/25/18 09/03/18 08/28/18 Rx Magnesium Oxide [Mag-Ox] 400 mg PO QDAY #30 tablet 07/25/18 09/03/18 08/28/18 Rx Multivitamin Tab [Multiple Vitamin 1 each PO QDAY #30 tablet 07/25/18 09/03/18 08/28/18 Rx TAB (Theragran)] Thiamine [Vitamin B-1] 100 mg PO QDAY #30 tablet 07/25/18 09/03/18 08/28/18 Rx Pantoprazole [Protonix TAB] 40 mg PO BID #60 tablet 09/04/18 Unknown Rx Furosemide [Lasix] 20 mg PO QDAY #30 tablet 02/17/21 Unknown Rx Potassium Chloride [K-Dur] 10 meq PO QDAY #30 tablet 02/17/21 Unknown Rx Furosemide [Lasix] 20 mg PO QDAY #12 tablet 12/23/21 Unknown Rx ED Physical Exam - General Limitations: No Limitations General appearance: alert, in no apparent distress - Head Head exam: Present: atraumatic, normocephalic - Eye Eye exam: Present: normal appearance, PERRL, EOMI - ENT ENT exam: Present: mucous membranes moist - Neck Neck exam: Present: normal inspection - Respiratory Respiratory exam: Present: normal lung sounds bilaterally. Absent: respiratory distress - Cardiovascular Cardiovascular Exam: Present: regular rate, normal rhythm. Absent: systolic murmur, diastolic murmur, rubs, gallop - GI/Abdominal GI/Abdominal exam: Present: soft, distended, normal bowel sounds. Absent: tenderness - Rectal Rectal exam: Present: deferred - Extremities Exam Extremities exam: Present: pedal edema - Back Exam Back exam: Present: normal inspection - Neurological Exam Neurological exam: Present: alert, oriented X3, CN II-XII intact. Absent: motor sensory deficit - Psychiatric Psychiatric exam: Present: normal affect, normal mood - Skin Skin exam: Present: warm, dry, intact, normal color. Absent: rash ED Course Vital Signs 12/23/21 11:10 Temperature 98 F Pulse Rate 69 Respiratory 16 Rate Blood Pressure 123/62 [Left] O2 Sat by Pulse 96 Oximetry ED Medical Decision Making - Lab Data Result diagrams: 12/23/21 11:38 12/23/21 11:38 Lab Results 12/23/21 12/23/21 12/23/21 Range/Units 11:38 11:38 11:38 WBC 8.7 (4.5-11.0) K/mm3 RBC 4.79 (3.65-5.03) M/mm3 Hgb 13.7 (11.8-15.2) gm/dl Hct 40.4 (35.5-45.6) % MCV 84 (84-94) fl MCH 29 (28-32) pg MCHC 34 (32-34) % RDW 15.1 (13.2-15.2) % Plt Count 198 (140-440) K/mm3 Lymph % (Auto) 21.9 (13.4-35.0) % [place] % (Auto) 10.6 H (0.0-7.3) % Eos % (Auto) 3.7 (0.0-4.3) % Baso % (Auto) 1.2 (0.0-1.8) % Lymph # (Auto) 1.9 (1.2-5.4) K/mm3 [place] # (Auto) 0.9 H (0.0-0.8) K/mm3 Eos # (Auto) 0.3 (0.0-0.4) K/mm3 Baso # (Auto) 0.1 (0.0-0.1) K/mm3 Seg Neutrophils % 62.6 (40.0-70.0) % Seg Neutrophils # 5.4 (1.8-7.7) K/mm3 PT (12.2-14.9) Sec. INR (0.87-1.13) APTT (24.2-36.6) Sec. Sodium 132 L (137-145) mmol/L Potassium 4.0 (3.6-5.0) mmol/L Chloride 96.8 L (98-107) mmol/L Carbon Dioxide 24 (22-30) mmol/L Anion Gap 15 mmol/L BUN 8 L (9-20) mg/dL Creatinine 0.6 L (0.8-1.3) mg/dL Estimated GFR > 60 ml/min BUN/Creatinine Ratio 13 % Glucose 94 (75-100) mg/dL Calcium 8.9 (8.4-10.2) mg/dL Total Bilirubin (0.1-1.2) mg/dL Direct Bilirubin (0-0.2) mg/dL Indirect Bilirubin mg/dL AST (5-40) units/L ALT (7-56) units/L Alkaline Phosphatase (35-129) units/L NT-Pro-B Natriuret Pep 66.86 (0-900) pg/mL Total Protein (6.3-8.2) g/dL Albumin (3.9-5) g/dL Albumin/Globulin Ratio % 12/23/21 12/23/21 Range/Units 15:03 15:08 WBC (4.5-11.0) K/mm3 RBC (3.65-5.03) M/mm3 Hgb (11.8-15.2) gm/dl Hct (35.5-45.6) % MCV (84-94) fl MCH (28-32) pg MCHC (32-34) % RDW (13.2-15.2) % Plt Count (140-440) K/mm3 Lymph % (Auto) (13.4-35.0) % [place] % (Auto) (0.0-7.3) % Eos % (Auto) (0.0-4.3) % Baso % (Auto) (0.0-1.8) % Lymph # (Auto) (1.2-5.4) K/mm3 [place] # (Auto) (0.0-0.8) K/mm3 Eos # (Auto) (0.0-0.4) K/mm3 Baso # (Auto) (0.0-0.1) K/mm3 Seg Neutrophils % (40.0-70.0) % Seg Neutrophils # (1.8-7.7) K/mm3 PT 13.4 (12.2-14.9) Sec. INR 0.92 (0.87-1.13) APTT 29.0 (24.2-36.6) Sec. Sodium (137-145) mmol/L Potassium (3.6-5.0) mmol/L Chloride (98-107) mmol/L Carbon Dioxide (22-30) mmol/L Anion Gap mmol/L BUN (9-20) mg/dL Creatinine (0.8-1.3) mg/dL Estimated GFR ml/min BUN/Creatinine Ratio % Glucose (75-100) mg/dL Calcium (8.4-10.2) mg/dL Total Bilirubin 0.30 (0.1-1.2) mg/dL Direct Bilirubin < 0.2 (0-0.2) mg/dL Indirect Bilirubin 0.1 mg/dL AST 48 H (5-40) units/L ALT 38 (7-56) units/L Alkaline Phosphatase 141 H (35-129) units/L NT-Pro-B Natriuret Pep (0-900) pg/mL Total Protein 7.8 (6.3-8.2) g/dL Albumin 4.2 (3.9-5) g/dL Albumin/Globulin Ratio 1.2 % - Radiology Data Radiology results: report reviewed - Medical Decision Making Return if worse Critical care attestation.: If time is entered above; I have spent that time in minutes in the direct care of this critically ill patient, excluding procedure time. ED Disposition Clinical Impression: Peripheral edema Disposition: 01 HOME / SELF CARE / HOMELESS Is pt being admited?: No Does the pt Need Aspirin: No Condition: Stable Instructions: Peripheral Edema Additional Instructions: Return if worse Prescriptions: Furosemide [Lasix] 20 mg PO QDAY #12 tablet Referrals: PRIMARY CARE, [Primary Care Provider] - 3-5 Days BROOKS TUBBS MD [Staff Physician] - 3-5 Days Time of Disposition: 17:17
[2021-12-23 16:13] LABS: Alanine Aminotransferase 38 units/L (7-56); Albumin 4.2 g/dL (3.9-5)
[2021-12-23 16:23] LABS: Bilirubin,Direct < 0.2 mg/dL (0-0.2)
[2021-12-23 16:39] LABS: INR 0.92 (0.87-1.13)
[2021-12-23] MEDS ORDERED: FUROSEMIDE 20 MG TAB PO ONE (17:15)
== END 2021-12-23 17:59 | disposition home or self-care (01) ==
LOC: ED 11:02
DX: R06.9 Unspecified abnormalities of breathing (principal); I10 Essential (primary) hypertension
CPT/HCPCS: 36415; 71045; 71046; 80048; 80076; 83880; 85025; 85610; 85730; 99284